=== PATIENT | female | born 1995 | race Caucasian/White ===

== ENCOUNTER → 2016-03-26 10:32 | Outpatient (CLI) | payer MEDICAID ==
[~2016-03-26 10:32] MED LIST: HYDROCODON-ACE1 EAC7 PO; IBUPROFEN600 MG PO; PRENATAL COMPLE1 TAB PO
[2016-03-26 12:18] LABS: APPEARANCE TURBID (CLEAR); BACTERIA MANY /hpf (NONE SEEN); BILIRUBIN NEGATIVE (NEGATIVE); COLOR YELLOW (YELLOW); GLUCOSE NEGATIVE (NEGATIVE); KETONE SMALL mg/dL (NEGATIVE); LEUKOCYTE ESTERASE 2+ (NEGATIVE); MUCUS <1+ /lpf (NONE SEEN); NITRITE POSITIVE (NEGATIVE); PROTEIN TRACE mg/dL (NEGATIVE); SPECIFIC GRAVITY 1.015 (1.005-1.020); UROBILINOGEN NORMAL (NORMAL)
[2016-05-19 04:56] VITALS: BMI 32.2
== END | disposition home or self-care (01) ==
LOC: D.LDO 10:32
PROVIDERS: Specialist
DX: Z34.83 Encounter for supervision of other normal pregnancy, third trimester (principal); M54.5 Low back pain; Z3A.31 31 weeks gestation of pregnancy

== ENCOUNTER 2016-04-19 14:12 | Outpatient (CLI) | payer MEDICAID ==
[~2016-04-19 14:12] MED LIST changes: -HYDROCODON-ACE1 EAC7 PO; -IBUPROFEN600 MG PO
[2016-04-19 14:55] LABS: APPEARANCE CLOUDY (CLEAR); BILIRUBIN NEGATIVE (NEGATIVE); COLOR DK YELLOW (YELLOW); GLUCOSE NEGATIVE (NEGATIVE); KETONE LARGE mg/dL (NEGATIVE); LEUKOCYTE ESTERASE TRACE (NEGATIVE); NITRITE NEGATIVE (NEGATIVE); PROTEIN 1+ mg/dL (NEGATIVE); SPECIFIC GRAVITY 1.015 (1.005-1.020); UROBILINOGEN NORMAL (NORMAL)
[2016-04-19 14:57] LABS: WHITE CELLS - URINE 0-5 /hpf (0-5)
[2016-04-19 14:58] LABS: BACTERIA MODERATE /hpf (NONE SEEN); EPITHELIAL CELLS 0-5 /hpf (0-5); MUCUS <1+ /lpf (NONE SEEN)
[2016-04-19 15:40] LABS: BASOPHILS 0.1 % (0.0-2.0); EOSINOPHILS 0.1 % (0-7); HEMATOCRIT 34.5 % (36.0-48.0); IMMATURE GRANULOCYTES 0.3 % (0-5); MCH 27.4 pg (26.0-34.0); MCHC 31.9 g/dL (31.0-37.0); MCV 85.8 fL (80.0-100.0); MONOCYTES 5.4 % (2-11); NEUTROPHILS 87.1 % (40-80); PLATELET COUNT 198 10x3/uL (130-400); RBC 4.02 10x6/uL (4.00-5.40); RDW 14.4 % (11.5-14.5); WBC 11.9 10x3/uL (4.8-10.8)
[2016-05-19 04:56] VITALS: BMI 32.2
== END 2016-04-20 08:30 | disposition home or self-care (01) ==
LOC: D.LD 14:12 → D.LDO 14:12 → D.LD 23:40 → D.LDO 04-20 08:30
PROVIDERS: Obstetrics & Gynecology
DX: Z34.83 Encounter for supervision of other normal pregnancy, third trimester (principal); Z3A.34 34 weeks gestation of pregnancy

== ENCOUNTER 2016-04-21 00:15 | Outpatient (CLI) | payer MEDICAID ==
[2016-04-21 01:07] LABS: BASOPHILS 0 % (0.0-2.0); EOSINOPHILS 1.5 % (0-7); HEMATOCRIT 26.6 % (36.0-48.0); HEMOGLOBIN 8.7 g/dL (12-16); IMMATURE GRANULOCYTES 0.3 % (0-5); MCH 27.1 pg (26.0-34.0); MCHC 32.7 g/dL (31.0-37.0); MCV 82.9 fL (80.0-100.0); MONOCYTES 12.1 % (2-11); NEUTROPHILS 64.1 % (40-80); PLATELET COUNT 154 10x3/uL (130-400); RBC 3.21 10x6/uL (4.00-5.40); RDW 14.4 % (11.5-14.5); WBC 6.6 10x3/uL (4.8-10.8)
[2016-05-19 04:56] VITALS: BMI 32.2
== END 2016-04-21 01:39 | disposition home or self-care (01) ==
LOC: D.LDO 00:15
PROVIDERS: Obstetrics & Gynecology
DX: Z34.83 Encounter for supervision of other normal pregnancy, third trimester (principal); Z3A.34 34 weeks gestation of pregnancy; R10.9 Unspecified abdominal pain

== ENCOUNTER → 2016-05-02 03:13 | Outpatient (CLI) | payer MEDICAID ==
[~2016-05-02 03:13] MED LIST changes: +HYDROCODON-ACE1 EAC7 PO; +IBUPROFEN600 MG PO
[2016-05-19 04:56] VITALS: BMI 32.2
== END | disposition home or self-care (01) ==
LOC: D.LDO 03:13
DX: Z34.83 Encounter for supervision of other normal pregnancy, third trimester (principal); Z3A.36 36 weeks gestation of pregnancy

== ENCOUNTER → 2016-05-05 00:20 | Outpatient (CLI) | payer MEDICAID ==
[2016-05-05 00:53] LABS: APPEARANCE HAZY (CLEAR); BILIRUBIN NEGATIVE (NEGATIVE); COLOR YELLOW (YELLOW); GLUCOSE NEGATIVE (NEGATIVE); KETONE NEGATIVE (NEGATIVE); LEUKOCYTE ESTERASE 1+ (NEGATIVE); NITRITE NEGATIVE (NEGATIVE); PROTEIN NEGATIVE (NEGATIVE); UROBILINOGEN NORMAL (NORMAL)
[2016-05-05 00:57] LABS: BACTERIA MANY /hpf (NONE SEEN); RED CELLS - URINE 0-5 /hpf (0-5)
[2016-05-19 04:56] VITALS: BMI 32.2
== END | disposition home or self-care (01) ==
LOC: D.LDO 00:20
PROVIDERS: Obstetrics & Gynecology
DX: O26.893 Other specified pregnancy related conditions, third trimester (principal); Z3A.37 37 weeks gestation of pregnancy; R10.2 Pelvic and perineal pain

== ENCOUNTER → 2016-05-12 15:53 | Outpatient (CLI) | payer MEDICAID ==
[2016-05-19 04:56] VITALS: BMI 32.2
== END | disposition home or self-care (01) ==
LOC: D.US 15:00
DX: O09.893 Supervision of other high risk pregnancies, third trimester (principal); Z3A.38 38 weeks gestation of pregnancy; O36.5930 Maternal care for other known or suspected poor fetal growth, third trimester, not applicable or unspecified

== ENCOUNTER 2016-05-19 04:30 | Inpatient (IN) | payer MEDICAID ==
[~2016-05-19] VITALS: Ht 152.4 cm; Wt 74.8 kg
[~2016-05-19 04:30] MED LIST changes: -HYDROCODON-ACE1 EAC7 PO; -IBUPROFEN600 MG PO
[2016-05-19 04:56] VITALS: BP 116/68; Ht 152.4 cm; Wt 74.8 kg
[2016-05-19 05:56] LABS: HEMATOCRIT 31.3 % (36.0-48.0); HEMOGLOBIN 9.7 g/dL (12-16); MCH 25.2 pg (26.0-34.0); MCV 81.3 fL (80.0-100.0); RBC 3.85 10x6/uL (4.00-5.40); RDW 15.7 % (11.5-14.5); WBC 8.8 10x3/uL (4.8-10.8)
[2016-05-19 07:16] LABS: APPEARANCE HAZY (CLEAR); BILIRUBIN NEGATIVE (NEGATIVE); COLOR YELLOW (YELLOW); GLUCOSE NEGATIVE (NEGATIVE); KETONE NEGATIVE (NEGATIVE); LEUKOCYTE ESTERASE TRACE (NEGATIVE); NITRITE NEGATIVE (NEGATIVE); PROTEIN NEGATIVE (NEGATIVE); SPECIFIC GRAVITY 1.015 (1.005-1.020); UROBILINOGEN NORMAL (NORMAL)
[2016-05-19 07:23] LABS: AMORPHOUS SEDIMENT <1+ /lpf (NONE SEEN); BACTERIA MODERATE /hpf (NONE SEEN); GRANULAR CAST RARE /lpf (NONE SEEN); MUCUS <1+ /lpf (NONE SEEN); RED CELLS - URINE NONE SEEN /hpf (0-5); WHITE CELLS - URINE 0-5 /hpf (0-5)
--- NOTE | 2016-05-19 17:50 | NUR ---
PT FEEDING BABY THEN EATING. TO BE MOVED TO ROOM 1215 WHEN FINISHED.
[2016-05-19 19:15] VITALS: BP 110/68
--- NOTE | 2016-05-19 19:15 | NUR ---
PT SITTING UP IN BED AAOX3 HOLDING AT THIS TIME. FOB AT BEDSIDE. VSS. SALINE LOCK NOTED TO RIGHT FOREARM. DRESSING CDI. HEART RRR. LUNG SOUNDS CLEAR BILATERALLY. BOWEL SOUNDS ACTIVE X4 QUADRENTS. ABDOMEN SOFT. FUNDUS FIRM AND MIDLINE. U/U. LIGHT LOCHIA RUBRA NOTED TO CANDACE PAD AT THIS TIME. PT RATES PAIN 6/10 AT THIS TIME. PT REQUESTS LEMON [place] AT THIS TIME. DENIES OTHER NEEDS. BED LOW. PHONE AND CALL LIGHT IN REACH. SRX2.
--- NOTE | 2016-05-19 20:18 | NUR ---
ADMINISTERED NORCO PO PER ORDERS AT THIS TIME FOR PAIN PT RATES 10/25. DENIES OTHER NEEDS. BED LOW. PHONE AND CALL LIGHT IN REACH. SRX2.
--- NOTE | 2016-05-19 21:03 | NUR ---
ADMINISTERED MILK OF MAG LIQUID SUSPENSION PER ORDERS AT THIS TIME. PT RATES PAIN /. REQUESTS LEMON [place]. DENIES OTHER NEEDS. BED LOW. PHONE AND CALL LIGHT IN REACH. SRX2.
--- NOTE | 2016-05-19 22:26 | NUR ---
PT UP USING SHOWER AT THIS TIME. STATES SHE IS GOING TO PUT HER OWN CLOTHES ON AFTER SHOWERING AND WALK AROUND FOR A LITTLE BIT. DENIES NEEDS.
--- NOTE | 2016-05-19 22:39 | NUR ---
PT UP AMBULATING IN [place] AT THIS TIME. NO NEEDS NOTED.
--- NOTE | 2016-05-20 00:08 | NUR ---
PT UP AMBULATING IN HALLWAY AT THIS TIME WITH SIGNIFICANT OTHER TO TAKE BABY BACK TO NURSERY. DENIES NEEDS.
--- NOTE | 2016-05-20 01:57 | NUR ---
PT RESTING QUIETLY AT THIS TIME. AROUSED EASILY. REQUESTS MEDICATION FOR PAIN 10/25. ADMINISTERED NORCO PO PER ORDERS AT THIS TIME. PT DENIES OTHER NEEDS. BED LOW. PHONE AND CALL LIGHT IN REACH. SRX2.
--- NOTE | 2016-05-20 03:55 | NUR ---
PT RESTING QUIETLY AT THIS TIME WITH EYES CLOSED. RESPIRATIONS EVEN, NON-LABORED. NO ACUTE DISTRESS NOTED AT THIS TIME. BED LOW. PHONE AND CALL LIGHT IN REACH. SRX2.
--- NOTE | 2016-05-20 05:18 | NUR ---
ADMINISTERED MOTRIN PO PER ORDERS AT THIS TIME FOR PAIN PT RATES 08/24. DENIES OTHER NEEDS. BED LOW. PHONE AND CALL LIGHT IN REACH. SRX2.
--- NOTE | 2016-05-20 05:57 | NUR ---
PT SITTING UP IN BED HOLDING AT THIS TIME. PT REQUESTS MEDICATION FOR PAIN. ADMINISTERED NORCO PO PER ORDERS AT THIS TIME FOR PAIN PT RATES 10/25. PT DENIES OTHER NEEDS. BED LOW. PHONE AND CALL LIGHT IN REACH. SRX2.
[2016-05-20 06:14] LABS: RAPID PLASMA REAGIN Non Reactive (Non Reactive)
[2016-05-20 06:36] LABS: BASOPHILS 0.2 % (0.0-2.0); EOSINOPHILS 1.4 % (0-7); HEMATOCRIT 25.4 % (36.0-48.0); IMMATURE GRANULOCYTES 0.1 % (0-5); LYMPHOCYTES 28.4 % (15-50); MCH 25.6 pg (26.0-34.0); MCHC 31.5 g/dL (31.0-37.0); MCV 81.2 fL (80.0-100.0); MEAN PLATELET VOLUME 11.3 fL (7.4-10.4); NEUTROPHILS 59.9 % (40-80); PLATELET COUNT 192 10x3/uL (130-400); RBC 3.13 10x6/uL (4.00-5.40); RDW 15.5 % (11.5-14.5); WBC 8.5 10x3/uL (4.8-10.8)
--- NOTE | 2016-05-20 06:47 | NUR ---
REASSESSED PTS PAIN AT THIS TIME. RATES PAIN /10. DENIES OTHER NEEDS. BED LOW. PHONE AND CALL LIGHT IN REACH. SRX2.
[2016-05-20 07:30] VITALS: BP 109/69
--- NOTE | 2016-05-20 07:30 | NUR ---
PT IS RECEIVED THIS AM SITTING UP IN BED, EATING BREAKFAST. SHE STATES HER PAIN IS A 5/10. GEN- AWAKE AND ALERT. LUNGS- CLEAR. HEART- RRR. ABD- SOFT FUNDUS FIRM. LOCIA- MOD. EXT- NO EDEMA. AT BEDSIDE. BED IS LOW, SIDE RAILS UP X 2 AND CALL LIGHT IN REACH.
--- NOTE | 2016-05-20 08:30 | NUR ---
PT REQUEST MORE PAIN MED. STATES HER PAIN IS NOW A 9. GAVE HER ANOTHER NORCO 5/325 MG.
[2016-05-20] MEDS ORDERED: HYDROCODON-ACE1 EAC7 PO (08:39)
[2016-05-20] MEDS ORDERED: IBUPROFEN600 MG PO (08:39)
--- NOTE | 2016-05-20 09:30 | NUR ---
WALKING IN [place] ASKING IF SHE CAN GO OUTSIDE HOSPITAL FOR WALK. INFORMED THAT FOR SAFETY, PATIENT NEEDS TO STAY INSIDE HOSPITAL WHERE HOSPITAL STAFF MAY OBSERVE FOR AND MEET NEEDS. REMAINS STABLE WITH NO SIGNS OF RESP DISTRESS OR OTHER DISTRESS NOTED OR REPORTED.
--- NOTE | 2016-05-20 10:50 | NUR ---
DR ALEJANDRO AT BEDSIDE. PATIENT REMAINS STABLE WITH NO SIGNS OF RESP DISTRESS OR OTHER DISTRESS NOTED. REPORTS PAIN MED EFFECTIVE BUT IS WEARING OFF AND PAIN NOW AT LEVEL 4 TO 5. FOB ATTENTIVE AT BEDSIDE.
--- NOTE | 2016-05-20 11:27 | NUR ---
PT IS SITTING UP IN BED, HOLDING BABY. SHE OFFERS NO COMPLAINTS. AT BEDSIDE. BED IS LOW, SIDE RAILS UP X 2 AND CALL LIGHT IN REACH.
--- NOTE | 2016-05-20 13:12 | NUR ---
PT STATES HER BABY ATE BETTER THIS TIME. SHE FED HIM 30CC AND HE IS STILL EATING. FOB AT BEDSIDE.
--- NOTE | 2016-05-20 13:40 | NUR ---
PT REQUESTED PAIN MED BEFORE DRIVE HOME. NORCO GIVEN.
--- NOTE | 2016-05-20 14:17 | NUR ---
DISCHARGE INSTRUCTIONS GIVEN TO PT. THESE WERE DISCUSSED WITH PT AND FOB. HANDOUTS GIVEN WELL FU APPT AND PRESCRIPTIONS. ENCOURAGED PT TO CALL US WITH ANY QUESTIONS OR PROBLEMS. PT TAKEN TO VEHICLE BY WHEELCHAIR.
== END 2016-05-20 14:23 | disposition home or self-care (01) | DRG 775 ==
LOC: D.LD 04:30 → D.WS 17:29
PROVIDERS: ADMIT Specialist
PROC: 10E0XZZ Delivery of Products of Conception, External Approach (ICD-10-PCS; principal; 2016-05-19)
PROC: 0HQ9XZZ Repair Perineum Skin, External Approach (ICD-10-PCS; 2016-05-19)
DX: O99.214 Obesity complicating childbirth (principal); Z3A.39 39 weeks gestation of pregnancy; Z37.0 Single live birth; Z68.32 Body mass index [BMI] 32.0-32.9, adult; O26.893 Other specified pregnancy related conditions, third trimester; Z67.91 Unspecified blood type, Rh negative; O69.81X0 Labor and delivery complicated by cord around neck, without compression, not applicable or unspecified; O66.9 Obstructed labor, unspecified; O70.0 First degree perineal laceration during delivery

== ENCOUNTER 2016-08-01 19:36 | Emergency (ER) | payer MEDICAID ==
[2016-05-19 04:56] VITALS: BMI 32.2
[~2016-08-01 19:36] MED LIST changes: +HYDROCODON-ACE1 EAC7 PO; +IBUPROFEN600 MG PO
== END 2016-08-01 22:16 | disposition home or self-care (01) ==
LOC: D.ER 19:36
DX: S81.011A Laceration without foreign body, right knee, initial encounter (principal); W26.9XXA Contact with unspecified sharp object(s), initial encounter

== ENCOUNTER 2016-11-01 21:07 | Emergency (ER) | payer MEDICAID | END 2016-11-01 23:43 | disposition home or self-care (01) | LOC: D.ER 21:07 | DX: J06.9 Acute upper respiratory infection, unspecified (principal); F17.200 Nicotine dependence, unspecified, uncomplicated ==

== ENCOUNTER 2016-12-25 16:30 | Emergency (ER) | payer MEDICAID ==
[2016-05-19 04:56] VITALS: BMI 32.2
[2016-12-25 17:04] LABS: BASOPHILS 0.3 % (0-2); EOSINOPHILS 1.7 % (0-7); HEMATOCRIT 40.6 % (36.0-48.0); IMMATURE GRANULOCYTES 0.2 % (0-5); LYMPHOCYTES 35.3 % (15-50); MCH 25.6 pg (26.0-34.0); MCV 80.1 fL (80.0-100.0); MEAN PLATELET VOLUME 10.5 fL (7.4-10.4); MONOCYTES 7.3 % (2-11); NEUTROPHILS 55.2 % (40-80); PLATELET COUNT 194 10x3/uL (130-400); RBC 5.07 10x6/uL (4.00-5.40)
[2016-12-25 17:13] LABS: AMYLASE - SERUM 68 U/L (25-115); LIPASE 186 U/L (73-393)
[2016-12-25 17:18] LABS: APPEARANCE CLEAR (CLEAR); BILIRUBIN NEGATIVE (NEGATIVE); COLOR YELLOW (YELLOW); GLUCOSE NEGATIVE (NEGATIVE); HCG URINE NEGATIVE (NEGATIVE); KETONE NEGATIVE (NEGATIVE); NITRITE NEGATIVE (NEGATIVE); PROTEIN NEGATIVE (NEGATIVE); SPECIFIC GRAVITY 1.015 (1.005-1.020); UROBILINOGEN NORMAL (NORMAL)
[2016-12-25 17:20] LABS: BACTERIA FEW /hpf (NONE SEEN); EPITHELIAL CELLS 0-5 /hpf (0-5); RED CELLS - URINE 0-5 /hpf (0-5); WHITE CELLS - URINE 0-5 /hpf (0-5)
== END 2016-12-25 18:52 | disposition home or self-care (01) ==
LOC: D.ER 16:30
PROVIDERS: Emergency Medicine; Nurse Practitioner Family
DX: K29.00 Acute gastritis without bleeding (principal); R11.10 Vomiting, unspecified

== ENCOUNTER → 2017-06-10 19:32 | Emergency (ER) | payer MEDICAID ==
[2016-05-19 04:56] VITALS: BMI 32.2
== END | disposition left against medical advice (07) ==
LOC: D.ER 19:32
DX: Z02.9 Encounter for administrative examinations, unspecified (principal)

== ENCOUNTER 2017-10-30 18:20 | Emergency (ER) | payer MEDICAID ==
[~2017-10-30] VITALS: Ht 152.4 cm; Wt 77.3 kg
[2017-10-30 18:26] VITALS: Ht 152.4 cm; Wt 77.3 kg
[2017-10-30 18:43] LABS: BASOPHILS 0.2 % (0-2); EOSINOPHILS 1.9 % (0-7); HEMOGLOBIN 14.6 g/dL (12-16); IMMATURE GRANULOCYTES 0.2 % (0-5); MCH 28.9 pg (26.0-34.0); MEAN PLATELET VOLUME 10.4 fL (7.4-10.4); NEUTROPHILS 58.7 % (40-80); PLATELET COUNT 217 10x3/uL (130-400); RBC 5.06 10x6/uL (4.00-5.40); RDW 14.3 % (11.5-14.5); WBC 9.4 10x3/uL (4.8-10.8)
[2017-10-30 18:50] LABS: APPEARANCE CLEAR (CLEAR); BILIRUBIN NEGATIVE (NEGATIVE); COLOR STRAW (YELLOW); GLUCOSE NEGATIVE (NEGATIVE); KETONE NEGATIVE (NEGATIVE); NITRITE NEGATIVE (NEGATIVE); PROTEIN NEGATIVE (NEGATIVE); UROBILINOGEN NORMAL (NORMAL)
[2017-10-30 18:52] LABS: EPITHELIAL CELLS 0-5 /hpf (0-5); RED CELLS - URINE 0-5 /hpf (0-5)
[2017-10-30 18:54] LABS: BACTERIA FEW /hpf (NONE SEEN)
[2017-10-30 18:57] LABS: ALBUMIN 3.5 g/dL (3.4-5.0); ALKALINE PHOSPHATASE 57 U/L (46-116); ALT (SGPT) 26 U/L (10-68); AMYLASE - SERUM 63 U/L (25-115); BILIRUBIN - TOTAL 0.14 mg/dL (0.2-1.3); CALC OSMOLALITY 280 mosm/kg (275-300); CALCIUM 8.6 mg/dL (8.5-10.1); CARBON DIOXIDE 27.4 mmol/L (21.0-32.0); CHLORIDE - SERUM 105 mmol/L (98-107); CREATININE - SERUM 0.7 mg/dL (0.6-1.3); GLUCOSE 107 mg/dL (74-106); LIPASE 169 U/L (73-393); POTASSIUM - SERUM 3.8 mmol/L (3.5-5.1); PROTEIN - SERUM 7.3 g/dL (6.4-8.2); SODIUM 141 mmol/L (136-145); UREA NITROGEN 12 mg/dL (7-18); eGFR NON AFRICAN AMERICAN > 90 mL/min (90-120)
[2017-10-30 19:20] LABS: HCG URINE NEGATIVE (NEGATIVE)
[2017-10-30 20:44] VITALS: BP 114/70
[2017-10-30] MEDS ORDERED: MACROBID100 MG PO (20:56)
[2017-10-30] MEDS ORDERED: COMPAZINE5 MG PO (20:56)
== END 2017-10-30 21:19 | disposition home or self-care (01) ==
LOC: D.ER 18:20
PROVIDERS: Emergency Medicine; Family Medicine
DX: N39.0 Urinary tract infection, site not specified (principal); R11.0 Nausea; R19.7 Diarrhea, unspecified; F17.200 Nicotine dependence, unspecified, uncomplicated

== ENCOUNTER 2017-12-19 00:20 | Emergency (ER) | payer MEDICAID ==
[~2017-12-19] VITALS: Ht 152.4 cm; Wt 68.2 kg
[~2017-12-19 00:20] MED LIST changes: +COMPAZINE5 MG PO; +MACROBID100 MG PO
[2017-12-19 00:30] VITALS: Ht 152.4 cm; Wt 68.2 kg
[2017-12-19] MEDS ORDERED: TORADOL10 MG PO (01:11)
[2017-12-19 01:32] LABS: HCG URINE NEGATIVE (NEGATIVE)
[2017-12-19 01:35] LABS: APPEARANCE CLOUDY (CLEAR); COLOR YELLOW (YELLOW)
[2017-12-19 01:36] LABS: BACTERIA MODERATE /hpf (NONE SEEN); BILIRUBIN NEGATIVE (NEGATIVE); GLUCOSE NEGATIVE (NEGATIVE); KETONE NEGATIVE (NEGATIVE); MUCUS >1+ /lpf (NONE SEEN); NITRITE NEGATIVE (NEGATIVE); PROTEIN TRACE mg/dL (NEGATIVE); UROBILINOGEN NORMAL (NORMAL); WHITE CELLS - URINE 25-50 /hpf (0-5)
[2017-12-19 02:09] VITALS: BP 95/60
== END 2017-12-19 02:09 | disposition home or self-care (01) ==
LOC: D.ER 00:20
PROVIDERS: Emergency Medicine
DX: S30.0XXA Contusion of lower back and pelvis, initial encounter (principal); W17.89XA Other fall from one level to another, initial encounter; Y93.89 Activity, other specified; Y92.019 Unspecified place in single-family (private) house as the place of occurrence of the external cause; F17.200 Nicotine dependence, unspecified, uncomplicated

== ENCOUNTER 2018-04-29 01:10 | Observation (INO) | payer MEDICAID ==
[~2018-04-29] VITALS: Ht 152.4 cm; Wt 76.7 kg
[~2018-04-29 01:10] MED LIST changes: +TORADOL10 MG PO
[2018-04-29 01:49] LABS: BASOPHILS 0.2 % (0-2); EOSINOPHILS 1.7 % (0-7); HEMATOCRIT 40.5 % (36.0-48.0); HEMOGLOBIN 13.8 g/dL (12-16); IMMATURE GRANULOCYTES 0.2 % (0-5); MCH 28.8 pg (26.0-34.0); MCHC 34.1 g/dL (31.0-37.0); MCV 84.6 fL (80.0-100.0); MEAN PLATELET VOLUME 10.6 fL (7.4-10.4); NEUTROPHILS 53.9 % (40-80); RBC 4.79 10x6/uL (4.00-5.40); RDW 14.3 % (11.5-14.5); WBC 8.9 10x3/uL (4.8-10.8)
[2018-04-29 01:51] LABS: APPEARANCE CLEAR (CLEAR); BILIRUBIN NEGATIVE (NEGATIVE); COLOR DK YELLOW (YELLOW); GLUCOSE NEGATIVE (NEGATIVE); KETONE NEGATIVE (NEGATIVE); NITRITE NEGATIVE (NEGATIVE); PROTEIN NEGATIVE (NEGATIVE); SPECIFIC GRAVITY 1.015 (1.005-1.020); UROBILINOGEN NORMAL (NORMAL)
[2018-04-29 01:52] LABS: PLATELET COUNT 262 10x3/uL (130-400)
[2018-04-29 02:26] LABS: ALBUMIN 3.3 g/dL (3.4-5.0); ALKALINE PHOSPHATASE 47 U/L (46-116); ALT (SGPT) 17 U/L (10-68); CALC OSMOLALITY 276 mosm/kg (275-300); CALCIUM 8.5 mg/dL (8.5-10.1); CARBON DIOXIDE 22.8 mmol/L (21.0-32.0); CHLORIDE - SERUM 106 mmol/L (98-107); CREATININE - SERUM 0.6 mg/dL (0.6-1.3); GLUCOSE 97 mg/dL (74-106); POTASSIUM - SERUM 3.4 mmol/L (3.5-5.1); PROTEIN - SERUM 6.9 g/dL (6.4-8.2); SODIUM 140 mmol/L (136-145); UREA NITROGEN 8 mg/dL (7-18); eGFR NON AFRICAN AMERICAN > 90 mL/min (90-120)
[2018-04-29 02:47] LABS: HCG - QUANTITATIVE (MATERNAL) 10151 mIU/mL
[2018-04-29 03:45] VITALS: BP 98/53; BMI 33.0
[2018-04-29 10:02] VITALS: Ht 152.4 cm; Wt 76.7 kg
[2018-04-29 11:38] VITALS: BP 98/55
== END 2018-04-29 20:14 | disposition home or self-care (01) ==
LOC: D.ER 01:10 → OBSVTIME 03:12 → D.LD 03:12 → D.ER 03:22 → D.LD 20:14
PROVIDERS: Family Medicine; ADMIT Obstetrics & Gynecology; ATTEND Obstetrics & Gynecology
DX: O02.1 Missed abortion (principal); O99.281 Endocrine, nutritional and metabolic diseases complicating pregnancy, first trimester; E28.2 Polycystic ovarian syndrome; Z3A.01 Less than 8 weeks gestation of pregnancy; O99.331 Smoking (tobacco) complicating pregnancy, first trimester

== ENCOUNTER 2018-05-01 18:21 | Emergency (ER) | payer MEDICAID ==
[~2018-05-01] VITALS: Ht 152.4 cm; Wt 77.3 kg
[2018-05-01 18:31] VITALS: Ht 152.4 cm; Wt 77.3 kg
[2018-05-01 18:56] LABS: APPEARANCE SL CLDY (CLEAR); BILIRUBIN NEGATIVE (NEGATIVE); COLOR YELLOW (YELLOW); GLUCOSE NEGATIVE (NEGATIVE); KETONE NEGATIVE (NEGATIVE); NITRITE NEGATIVE (NEGATIVE); PROTEIN TRACE mg/dL (NEGATIVE); UROBILINOGEN NORMAL (NORMAL)
[2018-05-01 19:02] LABS: BACTERIA MODERATE /hpf (NONE SEEN)
[2018-05-01 19:15] LABS: ALBUMIN 3.1 g/dL (3.4-5.0); ALKALINE PHOSPHATASE 46 U/L (46-116); ALT (SGPT) 12 U/L (10-68); BILIRUBIN - TOTAL 0.29 mg/dL (0.2-1.3); CALC OSMOLALITY 279 mosm/kg (275-300); CALCIUM 8.3 mg/dL (8.5-10.1); CARBON DIOXIDE 23.2 mmol/L (21.0-32.0); CHLORIDE - SERUM 107 mmol/L (98-107); CREATININE - SERUM 0.6 mg/dL (0.6-1.3); GLUCOSE 90 mg/dL (74-106); POTASSIUM - SERUM 3.1 mmol/L (3.5-5.1); PROTEIN - SERUM 6.6 g/dL (6.4-8.2); SODIUM 141 mmol/L (136-145); UREA NITROGEN 10 mg/dL (7-18); eGFR NON AFRICAN AMERICAN > 90 mL/min (90-120)
[2018-05-01 19:40] LABS: BASOPHILS 0.3 % (0-2); EOSINOPHILS 1.7 % (0-7); HEMATOCRIT 38.6 % (36.0-48.0); HEMOGLOBIN 12.7 g/dL (12-16); IMMATURE GRANULOCYTES 0.3 % (0-5); LYMPHOCYTES 41.2 % (15-50); MCH 28.1 pg (26.0-34.0); MCHC 32.9 g/dL (31.0-37.0); MCV 85.4 fL (80.0-100.0); MONOCYTES 7.9 % (2-11); NEUTROPHILS 48.6 % (40-80); PLATELET COUNT 232 10x3/uL (130-400); RBC 4.52 10x6/uL (4.00-5.40); RDW 14.7 % (11.5-14.5); WBC 7.1 10x3/uL (4.8-10.8)
[2018-05-01] MEDS ORDERED: ZOFRAN4 MG PO (20:51)
[2018-05-01 21:50] VITALS: BP 106/54
== END 2018-05-01 21:50 | disposition home or self-care (01) ==
LOC: D.ER 18:21
PROVIDERS: Emergency Medicine
DX: N39.0 Urinary tract infection, site not specified (principal); R11.2 Nausea with vomiting, unspecified; Z98.890 Other specified postprocedural states

== ENCOUNTER 2018-07-17 19:07 | Emergency (ER) | payer MEDICAID ==
[~2018-07-17 19:07] MED LIST changes: +ZOFRAN4 MG PO
[2018-07-17 19:11] VITALS: BMI 33.2
[2018-07-17 19:35] LABS: BASOPHILS 0.2 % (0-2); EOSINOPHILS 1.4 % (0-7); HEMATOCRIT 41.9 % (36.0-48.0); HEMOGLOBIN 14.1 g/dL (12-16); IMMATURE GRANULOCYTES 0.2 % (0-5); LYMPHOCYTES 33.2 % (15-50); MCH 28.5 pg (26.0-34.0); MCHC 33.7 g/dL (31.0-37.0); MCV 84.8 fL (80.0-100.0); MEAN PLATELET VOLUME 10.7 fL (7.4-10.4); MONOCYTES 7.1 % (2-11); NEUTROPHILS 57.9 % (40-80); PLATELET COUNT 234 10x3/uL (130-400); RBC 4.94 10x6/uL (4.00-5.40); RDW 13.9 % (11.5-14.5); WBC 9.7 10x3/uL (4.8-10.8)
[2018-07-17 19:52] LABS: HCG URINE NEGATIVE (NEGATIVE)
[2018-07-17 19:53] LABS: APTT 28.9 SECONDS (22.8-39.4); INR 1.06 (0.85-1.17); PROTIME 13.3 SECONDS (11.6-15.0)
[2018-07-17 20:02] LABS: ALBUMIN 3.7 g/dL (3.4-5.0); ALKALINE PHOSPHATASE 68 U/L (46-116); ALT (SGPT) 32 U/L (10-68); BILIRUBIN - TOTAL 0.26 mg/dL (0.2-1.3); CALC OSMOLALITY 279 mosm/kg (275-300); CALCIUM 9.2 mg/dL (8.5-10.1); CARBON DIOXIDE 25.5 mmol/L (21.0-32.0); CHLORIDE - SERUM 104 mmol/L (98-107); CREATININE - SERUM 0.7 mg/dL (0.6-1.3); GLUCOSE 101 mg/dL (74-106); POTASSIUM - SERUM 3.8 mmol/L (3.5-5.1); PROTEIN - SERUM 7.7 g/dL (6.4-8.2); SODIUM 140 mmol/L (136-145); UREA NITROGEN 15 mg/dL (7-18); eGFR NON AFRICAN AMERICAN > 90 mL/min (90-120)
[2018-07-17 20:16] LABS: CKMB 0.4 U/L (0.0-3.6); CREATINE KINASE 74 UL (21-215); THYROID STIMULATING HORMONE 1.17 uIU/mL (0.36-3.74)
[2018-07-17 20:17] LABS: TROPONIN-I < 0.017 ng/mL (0.000-0.060)
[2018-07-17] MEDS ORDERED: PREDNISONE50 MG PO (20:45)
[2018-07-17 21:04] VITALS: BP 117/70
== END 2018-07-17 21:04 | disposition home or self-care (01) ==
LOC: D.ER 19:07
PROVIDERS: Family Medicine
DX: G51.0 Bell's palsy (principal); R07.9 Chest pain, unspecified

== ENCOUNTER 2018-08-07 19:43 | Emergency (ER) | payer MEDICAID ==
[~2018-08-07] VITALS: Ht 152.4 cm; Wt 77.1 kg
[~2018-08-07 19:43] MED LIST changes: +PREDNISONE50 MG PO
[2018-08-07 19:45] VITALS: Ht 152.4 cm; Wt 77.1 kg
[2018-08-07] MEDS ORDERED: MEDROL DOSE PACK4 MG PO (20:16)
[2018-08-07] MEDS ORDERED: HYDROCORTISONE30 G8 TOPICAL (20:16)
[2018-08-07 20:40] VITALS: BP 128/74
== END 2018-08-07 20:40 | disposition home or self-care (01) ==
LOC: D.ER 19:43
DX: L25.9 Unspecified contact dermatitis, unspecified cause (principal); F17.210 Nicotine dependence, cigarettes, uncomplicated

== ENCOUNTER 2018-09-24 00:39 | Emergency (ER) | payer MEDICAID ==
[~2018-09-24] VITALS: Ht 152.4 cm; Wt 78.2 kg
[~2018-09-24 00:39] MED LIST changes: +HYDROCORTISONE30 G8 TOPICAL; +MEDROL DOSE PACK4 MG PO
[2018-09-24 00:51] VITALS: Ht 152.4 cm; Wt 78.2 kg
[2018-09-24 01:03] LABS: BASOPHILS 0.2 % (0-2); EOSINOPHILS 2.5 % (0-7); HEMATOCRIT 40.4 % (36.0-48.0); HEMOGLOBIN 14.1 g/dL (12-16); IMMATURE GRANULOCYTES 0.2 % (0-5); LYMPHOCYTES 22.1 % (15-50); MCH 28.6 pg (26.0-34.0); MCHC 34.9 g/dL (31.0-37.0); MCV 81.9 fL (80.0-100.0); MEAN PLATELET VOLUME 10.5 fL (7.4-10.4); MONOCYTES 7.5 % (2-11); NEUTROPHILS 67.5 % (40-80); PLATELET COUNT 214 10x3/uL (130-400); RBC 4.93 10x6/uL (4.00-5.40); RDW 14.8 % (11.5-14.5); WBC 13.7 10x3/uL (4.8-10.8)
[2018-09-24 01:15] LABS: HCG SERUM POSITIVE (NEGATIVE)
[2018-09-24 01:17] LABS: ALBUMIN 3.3 g/dL (3.4-5.0); ALKALINE PHOSPHATASE 62 U/L (46-116); ALT (SGPT) 11 U/L (10-68); BILIRUBIN - TOTAL 0.26 mg/dL (0.2-1.3); CALC OSMOLALITY 271 mosm/kg (275-300); CALCIUM 9.2 mg/dL (8.5-10.1); CARBON DIOXIDE 22.7 mmol/L (21.0-32.0); CHLORIDE - SERUM 103 mmol/L (98-107); CREATININE - SERUM 0.5 mg/dL (0.6-1.3); GLUCOSE 99 mg/dL (74-106); PROTEIN - SERUM 7.6 g/dL (6.4-8.2); SODIUM 137 mmol/L (136-145); UREA NITROGEN 6 mg/dL (7-18); eGFR NON AFRICAN AMERICAN > 90 mL/min (90-120)
[2018-09-24 01:40] LABS: HCG - QUANTITATIVE (MATERNAL) 56110 mIU/mL
[2018-09-24 02:19] LABS: APPEARANCE HAZY (CLEAR); BILIRUBIN NEGATIVE (NEGATIVE); COLOR YELLOW (YELLOW); GLUCOSE NEGATIVE (NEGATIVE); KETONE NEGATIVE (NEGATIVE); NITRITE NEGATIVE (NEGATIVE); PROTEIN NEGATIVE (NEGATIVE); SPECIFIC GRAVITY 1.005 (1.005-1.020); UROBILINOGEN NORMAL (NORMAL); WHITE CELLS - URINE RARE /hpf (0-5)
[2018-09-24 05:13] VITALS: BP 123/75
== END 2018-09-24 05:13 | disposition home or self-care (01) ==
LOC: D.ER 00:39
PROVIDERS: Family Medicine
DX: O20.0 Threatened abortion (principal); Z3A.10 10 weeks gestation of pregnancy; N93.9 Abnormal uterine and vaginal bleeding, unspecified

== ENCOUNTER 2018-09-25 16:27 | Emergency (ER) | payer MEDICAID ==
[~2018-09-25] VITALS: Ht 152.4 cm; Wt 78.2 kg
[2018-09-25 16:57] VITALS: Ht 152.4 cm; Wt 78.2 kg
[2018-09-25 17:14] LABS: BASOPHILS 0.1 % (0-2); EOSINOPHILS 2.5 % (0-7); HEMATOCRIT 40.6 % (36.0-48.0); HEMOGLOBIN 13.9 g/dL (12-16); IMMATURE GRANULOCYTES 0.1 % (0-5); MCH 28.4 pg (26.0-34.0); MCHC 34.2 g/dL (31.0-37.0); MEAN PLATELET VOLUME 10.7 fL (7.4-10.4); MONOCYTES 10.2 % (2-11); NEUTROPHILS 60.1 % (40-80); PLATELET COUNT 206 10x3/uL (130-400); RBC 4.89 10x6/uL (4.00-5.40); RDW 14.8 % (11.5-14.5)
[2018-09-25 17:17] LABS: WBC 8.3 10x3/uL (4.8-10.8)
[2018-09-25 17:22] LABS: APPEARANCE CLEAR (CLEAR); BILIRUBIN NEGATIVE (NEGATIVE); COLOR YELLOW (YELLOW); GLUCOSE NEGATIVE (NEGATIVE); KETONE NEGATIVE (NEGATIVE); NITRITE NEGATIVE (NEGATIVE); PROTEIN NEGATIVE (NEGATIVE); SPECIFIC GRAVITY 1.015 (1.005-1.020); UROBILINOGEN NORMAL (NORMAL)
[2018-09-25 17:24] LABS: EPITHELIAL CELLS 0-5 /hpf (0-5); RED CELLS - URINE OCC /hpf (0-5); WHITE CELLS - URINE 0-5 /hpf (0-5)
[2018-09-25 17:25] LABS: AMORPHOUS SEDIMENT >1+ /lpf (NONE SEEN); BACTERIA FEW /hpf (NONE SEEN)
[2018-09-25 17:39] LABS: ALBUMIN 3.2 g/dL (3.4-5.0); ALKALINE PHOSPHATASE 59 U/L (46-116); ALT (SGPT) 11 U/L (10-68); BILIRUBIN - TOTAL 0.26 mg/dL (0.2-1.3); CALC OSMOLALITY 266 mosm/kg (275-300); CALCIUM 9.1 mg/dL (8.5-10.1); CARBON DIOXIDE 23.1 mmol/L (21.0-32.0); CHLORIDE - SERUM 103 mmol/L (98-107); CREATININE - SERUM 0.5 mg/dL (0.6-1.3); GLUCOSE 85 mg/dL (74-106); POTASSIUM - SERUM 3.8 mmol/L (3.5-5.1); PROTEIN - SERUM 7.3 g/dL (6.4-8.2); SODIUM 135 mmol/L (136-145); UREA NITROGEN 7 mg/dL (7-18); eGFR NON AFRICAN AMERICAN > 90 mL/min (90-120)
[2018-09-25 18:02] LABS: HCG - QUANTITATIVE (MATERNAL) 58576 mIU/mL
[2018-09-25 20:12] VITALS: BP 120/69
== END 2018-09-25 20:13 | disposition home or self-care (01) ==
LOC: D.ER 16:27
PROVIDERS: Emergency Medicine
DX: O20.9 Hemorrhage in early pregnancy, unspecified (principal); Z3A.10 10 weeks gestation of pregnancy

== ENCOUNTER → 2018-12-25 13:17 | Outpatient (CLI) | payer MEDICAID ==
[2018-09-25 16:57] VITALS: BMI 33.6
[2018-12-25 13:47] LABS: APPEARANCE TURBID (CLEAR); COLOR YELLOW (YELLOW)
[2018-12-25 13:48] LABS: BILIRUBIN NEGATIVE (NEGATIVE); GLUCOSE NEGATIVE (NEGATIVE); KETONE NEGATIVE (NEGATIVE); NITRITE NEGATIVE (NEGATIVE); PROTEIN NEGATIVE (NEGATIVE); SPECIFIC GRAVITY 1.025 (1.005-1.020); UROBILINOGEN NORMAL (NORMAL)
[2018-12-25 13:49] LABS: BACTERIA MANY /hpf (NEGATIVE); EPITHELIAL CELLS 25-50 /hpf (0-5); MUCUS >1+ /lpf (NONE SEEN); RED CELLS - URINE 0-5 /hpf (0-5)
== END | disposition home or self-care (01) ==
LOC: D.LDO 13:17
PROVIDERS: ATTEND Obstetrics & Gynecology
DX: O26.892 Other specified pregnancy related conditions, second trimester (principal); R10.10 Upper abdominal pain, unspecified; Z3A.23 23 weeks gestation of pregnancy

== ENCOUNTER → 2019-01-02 09:03 | Outpatient (CLI) | payer MEDICAID ==
[2018-09-25 16:57] VITALS: BMI 33.6
[2019-01-02 10:33] LABS: APPEARANCE CLEAR (CLEAR); BACTERIA FEW /hpf (NEGATIVE); BILIRUBIN NEGATIVE (NEGATIVE); COLOR YELLOW (YELLOW); EPITHELIAL CELLS 0-5 /hpf (0-5); GLUCOSE NEGATIVE (NEGATIVE); KETONE SMALL mg/dL (NEGATIVE); MUCUS <1+ /lpf (NONE SEEN); NITRITE NEGATIVE (NEGATIVE); PROTEIN NEGATIVE (NEGATIVE); RED CELLS - URINE OCC /hpf (0-5); UROBILINOGEN NORMAL (NORMAL); WHITE CELLS - URINE RARE /hpf (NEGATIVE)
== END | disposition home or self-care (01) ==
LOC: D.LDO 09:03
PROVIDERS: ATTEND Obstetrics & Gynecology
DX: O47.9 False labor, unspecified (principal); Z3A.00 Weeks of gestation of pregnancy not specified

== ENCOUNTER 2019-01-25 15:46 | Outpatient (CLI) | payer MEDICAID ==
[2018-09-25 16:57] VITALS: BMI 33.6
[2019-01-25 16:24] LABS: APPEARANCE HAZY (CLEAR); BILIRUBIN NEGATIVE (NEGATIVE); COLOR YELLOW (YELLOW); GLUCOSE NEGATIVE (NEGATIVE); KETONE NEGATIVE (NEGATIVE); NITRITE NEGATIVE (NEGATIVE); PROTEIN TRACE mg/dL (NEGATIVE); UROBILINOGEN NORMAL (NORMAL)
[2019-01-25 16:26] LABS: RED CELLS - URINE 0-5 /hpf (0-5); WHITE CELLS - URINE 0-5 /hpf (NEGATIVE)
[2019-01-25 16:27] LABS: EPITHELIAL CELLS 0-5 /hpf (0-5); MUCUS <1+ /lpf (NONE SEEN)
[2019-01-25 16:28] LABS: BACTERIA MODERATE /hpf (NEGATIVE)
== END 2019-01-25 18:00 ==
LOC: D.LDO 15:46
PROVIDERS: ATTEND Obstetrics & Gynecology
DX: O36.8120 Decreased fetal movements, second trimester, not applicable or unspecified (principal); Z3A.27 27 weeks gestation of pregnancy; R10.30 Lower abdominal pain, unspecified

== ENCOUNTER → 2019-02-11 18:05 | Outpatient (CLI) | payer MEDICAID ==
[~2019-02-11] VITALS: Ht 152.4 cm; Wt 73.6 kg
[~2019-02-11 18:05] MED LIST changes: +TAMIFLU75 MG PO
[2019-02-11 18:13] VITALS: Ht 152.4 cm; Wt 73.6 kg
[2019-02-11 18:58] LABS: BASOPHILS 0.2 % (0-2); EOSINOPHILS 0.7 % (0-7); HEMATOCRIT 31.3 % (36.0-48.0); HEMOGLOBIN 10.3 g/dL (12-16); IMMATURE GRANULOCYTES 0.2 % (0-5); LYMPHOCYTES 9.1 % (15-50); MCH 28.1 pg (26.0-34.0); MCHC 32.9 g/dL (31.0-37.0); MCV 85.5 fL (80.0-100.0); MEAN PLATELET VOLUME 10.8 fL (7.4-10.4); MONOCYTES 11.2 % (2-11); NEUTROPHILS 78.6 % (40-80); PLATELET COUNT 193 10x3/uL (130-400); RBC 3.66 10x6/uL (4.00-5.40); RDW 14.6 % (11.5-14.5); WBC 9.1 10x3/uL (4.8-10.8)
[2019-02-11 19:04] LABS: APPEARANCE HAZY (CLEAR); BACTERIA MODERATE /hpf (NEGATIVE); BILIRUBIN NEGATIVE (NEGATIVE); COLOR YELLOW (YELLOW); EPITHELIAL CELLS 0-5 /hpf (0-5); GLUCOSE NEGATIVE (NEGATIVE); KETONE LARGE mg/dL (NEGATIVE); MUCUS <1+ /lpf (NONE SEEN); NITRITE NEGATIVE (NEGATIVE); PROTEIN TRACE mg/dL (NEGATIVE); UROBILINOGEN NORMAL (NORMAL); WHITE CELLS - URINE 0-5 /hpf (NEGATIVE)
[2019-02-11 19:05] LABS: CALC OSMOLALITY 267 mosm/kg (275-300); CALCIUM 8.2 mg/dL (8.5-10.1); CARBON DIOXIDE 20.2 mmol/L (21.0-32.0); CHLORIDE - SERUM 103 mmol/L (98-107); CREATININE - SERUM 0.4 mg/dL (0.6-1.3); GLUCOSE 86 mg/dL (74-106); POTASSIUM - SERUM 3.5 mmol/L (3.5-5.1); SODIUM 136 mmol/L (136-145); UREA NITROGEN 5 mg/dL (7-18); eGFR NON AFRICAN AMERICAN > 90 mL/min (90-120)
[2019-02-11 19:11] LABS: ALBUMIN 2.6 g/dL (3.4-5.0); ALKALINE PHOSPHATASE 109 U/L (46-116); ALT (SGPT) 12 U/L (10-68); BILIRUBIN - TOTAL 0.23 mg/dL (0.2-1.3); PROTEIN - SERUM 6.6 g/dL (6.4-8.2)
[2019-02-11 20:23] VITALS: BP 124/85
== END | disposition home or self-care (01) ==
LOC: D.LDO 18:05 → D.ER 18:05 → EDSTATUS 21:06
PROVIDERS: Emergency Medicine; ATTEND Obstetrics & Gynecology
DX: O26.899 Other specified pregnancy related conditions, unspecified trimester (principal); J11.1 Influenza due to unidentified influenza virus with other respiratory manifestations

== ENCOUNTER → 2019-02-11 21:13 | Outpatient (CLI) | payer MEDICAID ==
[2019-02-11 18:13] VITALS: BMI 31.7
== END | disposition home or self-care (01) ==
LOC: D.LDO 21:13
PROVIDERS: ATTEND Obstetrics & Gynecology
DX: O26.899 Other specified pregnancy related conditions, unspecified trimester (principal); J11.1 Influenza due to unidentified influenza virus with other respiratory manifestations

== ENCOUNTER 2019-02-18 12:58 | Inpatient (IN) | payer MEDICAID ==
[~2019-02-18] VITALS: Ht 152.4 cm; Wt 74.6 kg
[2019-02-18] VITALS (29 sets, daily range): BP systolic 85–121; BP diastolic 47–83; BMI 34.0
--- NOTE | 2019-02-18 13:45 | NUR ---
MULTIPLE LATE ENTRIES DUE TO PT EMERGENT CONDITION. ARRIVED VIA EMS WITH REPORT OF HYPOTENSION, POSSIBLE GI BLEED, ABD PAIN AND 32WKS PREG. OB DEPT NOTIFIED LACING STRING CUTTER INTITIAL TRIAGE CHARTED AT [address] WHEELER AT BS. HEMOCCULT NEGATIVE AND FHT OBTAINED AT 84.
--- NOTE | 2019-02-18 13:45 | NUR ---
NOTE CONTINUED....AFTER HEMOCCULT AND FHT OBTAINED OB NOTIFIED. 2ND IV ACCESS OBTAINED WITH 18G TO RAC, NS BOLUS STARTED. PT PLACED ON MONITOR AND TRANSPORTED TO OB VIA STRETCHER AT 1310.....
--- NOTE | 2019-02-18 15:55 | NUR ---
REC'D PT TO CVICU AT 1535- RR NURSE AND DR RASCON AT BS. DR WARNER HERE WELL. ALL MONITORING EQUIPMENT ATTACHED AND ALARMS SET. CBC AND BMP SENT TO LAB. DEMISE BABY BROUGHT TO BEDSIDE. FAMILY AT BS.
[2019-02-18 16:13] LABS: HEMATOCRIT 28.1 % (36.0-48.0); MCH 28.1 pg (26.0-34.0); MCV 87.8 fL (80.0-100.0); MEAN PLATELET VOLUME 10.2 fL (7.4-10.4); PLATELET COUNT 128 10x3/uL (130-400); RDW 15.5 % (11.5-14.5); WBC 24.5 10x3/uL (4.8-10.8)
[2019-02-18 16:21] LABS: CARBON DIOXIDE 18.2 mmol/L (21.0-32.0); CHLORIDE - SERUM 109 mmol/L (98-107); CREATININE - SERUM 0.6 mg/dL (0.6-1.3); POTASSIUM - SERUM 4.5 mmol/L (3.5-5.1); SODIUM 139 mmol/L (136-145); UREA NITROGEN 7 mg/dL (7-18); eGFR NON AFRICAN AMERICAN > 90 mL/min (90-120)
[2019-02-18 16:24] LABS: CALC OSMOLALITY 283 mosm/kg (275-300); CALCIUM 6.5 mg/dL (8.5-10.1); GLUCOSE 234 mg/dL (74-106)
[2019-02-18 16:45] LABS: EOSINOPHILS 1 % (0-7); LYMPHOCYTES 9 % (15-50); MONOCYTES 1 % (2-11); NEUTROPHILS 88 % (40-80)
[2019-02-18 16:46] LABS: BURR CELLS OCC; PLATELET ESTIMATE NORMAL
[2019-02-18 16:47] LABS: SCHISTOCYTES OCC
[2019-02-18 17:30] LABS: APTT 33.2 SECONDS (22.8-39.4); INR 1.5 (0.85-1.17); PROTIME 17.5 SECONDS (11.6-15.0)
[2019-02-18 18:20] LABS: BASOPHILS 0.1 % (0-2); EOSINOPHILS 0.1 % (0-7); HEMATOCRIT 27.2 % (36.0-48.0); HEMOGLOBIN 8.8 g/dL (12-16); IMMATURE GRANULOCYTES 1.1 % (0-5); LYMPHOCYTES 11.4 % (15-50); MCH 27.8 pg (26.0-34.0); MCHC 32.4 g/dL (31.0-37.0); MCV 86.1 fL (80.0-100.0); MEAN PLATELET VOLUME 9.7 fL (7.4-10.4); MONOCYTES 7.9 % (2-11); NEUTROPHILS 79.4 % (40-80); RBC 3.16 10x6/uL (4.00-5.40); RDW 15.4 % (11.5-14.5); WBC 19.2 10x3/uL (4.8-10.8)
[2019-02-18 18:22] LABS: PLATELET COUNT 97 10x3/uL (130-400)
--- NOTE | 2019-02-18 19:15 | NUR ---
NURSES FROM LABOR AND DELIVERY AND FROM NURSERY HERE CHECKING ON PT INFORMING NURSES OF CARE OF PT. MODERATE AMOUNT OF SEROSANGUINOUS DRAINAGE FROM VAGINA PER REPORT FROM DAY SHIFT PT HAD SOAKED THROUGH A JUAN PAPER PAD. THIS WAS CALLED TO DR WARNER PER DAYSHIFT.
--- NOTE | 2019-02-18 20:45 | NUR ---
DOWN TO LABOR AND DELIVERY TO GET PERIPADS SPOKE WITH RN NELSON WHO OFFERED TO COME AND INSTRUCT EDUCATE AND DEMONSTRATE CARE TO RNS ON UNIT.
--- NOTE | 2019-02-18 21:00 | NUR ---
RN TO UNIT TO ASSIST WITH FUNDAL CHECK AND PERICARE. FUNDUS FIRM MIDLINE AND U2 WITH SMALL TO MODERATE AMT RUBRA LOCHIA, NO CLOTS NOTED. VSS. ASSISTED WITH PERICARE. BACK TO L&D PER PT AND SPOUSE REQUEST. PT REQUEST THAT [facility] BE CONTACTED REGARDING PRICING OF SERVICES AND BURIAL OF INFANT.
[2019-02-18 21:05] LABS: BASOPHILS 0.1 % (0-2); EOSINOPHILS 0.1 % (0-7); HEMOGLOBIN 7.9 g/dL (12-16); IMMATURE GRANULOCYTES 0.7 % (0-5); LYMPHOCYTES 11.7 % (15-50); MCH 28.1 pg (26.0-34.0); MCHC 32.9 g/dL (31.0-37.0); MEAN PLATELET VOLUME 10.7 fL (7.4-10.4); MONOCYTES 9.1 % (2-11); NEUTROPHILS 78.3 % (40-80); RBC 2.81 10x6/uL (4.00-5.40); RDW 15.3 % (11.5-14.5); WBC 19.8 10x3/uL (4.8-10.8)
[2019-02-18 21:11] LABS: MCV 85.4 fL (80.0-100.0); PLATELET COUNT 102 10x3/uL (130-400)
--- NOTE | 2019-02-18 22:00 | NUR ---
DR KUMAR ON UNIT ASSESSING PT INFORMED OF HGB AND HCT RESULTS HE STATED HE WAS OK WITH NOT TRANSFUSING WOULD LEAVE UP TO OBGYN DR WARNER WHO TOLD DAY SHIFT NURSE SHE WOULD CHECK RESULTS AT HOME DID NOT NEED RESULTS CALLED TO HER BUT IF NURSES HAD ANY QUESTIONS NOT TO HESITATE TO CALL
--- NOTE | 2019-02-18 22:40 | NUR ---
DR WARNER NURSING EXECUTIVE CALLED TO CHECK ON PT STATUS GIVEN AND INFORMED THAT SASHA HAD JUST BEEN UP AND STATED HE WAS OK NOT TRANSFUSING BUT UP TO OBGYN. SHE STATED GO AHEAD AND GET 2300 CBC AND CALL RESULTS
[2019-02-18 23:21] LABS: BASOPHILS 0.1 % (0-2); EOSINOPHILS 0.1 % (0-7); HEMATOCRIT 21.7 % (36.0-48.0); IMMATURE GRANULOCYTES 0.6 % (0-5); LYMPHOCYTES 14.8 % (15-50); MCH 27.5 pg (26.0-34.0); MCHC 32.3 g/dL (31.0-37.0); MCV 85.1 fL (80.0-100.0); MEAN PLATELET VOLUME 10.8 fL (7.4-10.4); MONOCYTES 7.8 % (2-11); NEUTROPHILS 76.6 % (40-80); PLATELET COUNT 93 10x3/uL (130-400); RBC 2.55 10x6/uL (4.00-5.40); RDW 15.5 % (11.5-14.5); WBC 15.4 10x3/uL (4.8-10.8)
--- NOTE | 2019-02-18 23:30 | NUR ---
DISCUSSED WITH PT REMOVAL OPTIONS OF BURIAL VS CREMATION. PT AND SPOUSE STATE THAT THEY WANT BURIAL AND REQUEST RN CONTACT [facility] FOR PRICING OPTIONS. WILL CONTACT EACH FACILITY AND NOTIFY PT AND SPOUSE OF INFO FOUND.
--- NOTE | 2019-02-18 23:30 | NUR ---
NELSON BRADY RN FROM LABOR AND DELIVERY HERE SPEAKING WITH PT AND FAMILY ABOUT HOME DECISIONS.
--- NOTE | 2019-02-18 23:38 | NUR ---
SPOKE WITH [facility]SP[facility] TECHNICIAN. INFO OBTAINED AND GIVEN TO SPOUSE, HE STATES THAT HE WILL DISCUSS WITH PT.
--- NOTE | 2019-02-18 23:41 | NUR ---
[facility] ANSWER[facility] SERV[facility] CONTACTED AND WILL PAGE DIRECTOR TO CALL UNIT. PT AND SPOUSE NOTIFIED.
--- NOTE | 2019-02-18 23:50 | NUR ---
DR WARNER CALLED BACK HAD SEEN THE H&h LAB RESULTS THAT HAD DROPPED INFORMED OF PT VITAL SIGNS AND URINE OUTPUT AND DECREASE IN BLEEDING NOTED VAGINALLY INFORMED THAT NELSON WAS HERE TALKING WITH FAMILY AND HOME AND WE WERE ABOUT TO CHECK PT FUNDUS AND CALL HER WITH THE INFO. DR WARNER SPOKE WITH NELSON THE L&D NURSE THEN ORDERED FOR PT TO RECEIVE 2 U PRBC OVER 1.5 -2 HOURS EACH. TO CANCEL THE SERIAL LAB DRAWS AND TO DRAW POST CBC 2 HOURS AFTER THE 2 UNITS HAD BEEN TRANSFUSED AND SHE WOULD MAKE DECISION ABOUT FURTHER LAB DRAWS. SHE ALSO ORDERED PREMED WITH BENADRYL 25 MG AND TYLENOL 650 MG PO
[2019-02-19] VITALS (15 sets, daily range): BP systolic 84–108; BP diastolic 51–68; Ht 152.4 cm; Wt 74.6 kg
--- NOTE | 2019-02-19 00:18 | NUR ---
NO CALL BACK REC'D FROM [facility], PAGED AGAIN, SPOKE WITH ANSWERING HOG WORKER, AWAITING CALL BACK.
--- NOTE | 2019-02-19 00:30 | NUR ---
FIRST PRBC UNIT STARTED INFORMED PT AND FAMILY OF S/S TO REPORT WITH VERBALIZATION OF UNDERSTANDING. PT ALSO ASKED IF RN WOULD CALL DOWN FOR HER TO BE ABLE TO SEE THE BABY. CALLED NURSERY AND STATED PT WOULD LIKE TO SEE BABY INFORMED THEY WOULD BRING BABY UP
--- NOTE | 2019-02-19 00:52 | NUR ---
INFANT TO PT ROOM PER REQUEST.
--- NOTE | 2019-02-19 01:00 | NUR ---
NELSON FROM WOMENS UNIT UP WITH BABY SPEAKING WITH FAMILY AND PT
--- NOTE | 2019-02-19 01:09 | NUR ---
PT CALLS REQUEST INFANT BE TAKEN BACK TO L&D. REQUEST REMOVAL OF BE DONE BY [facility]. PT REQUESTS THAT INFANT BE BROUGHT BACK TO ROOM FOR GOOD-BYES PRIOR TO HOME PERSONNEL RESEARCH PSYCHOLOGIST TAKING .
--- NOTE | 2019-02-19 01:12 | NUR ---
PT AND SPOUSE REQUEST REMOVAL OF BE DONE BY [facility]. MORE CONTACTED AND REPORTS THAT HE WILL COME TO HOSPITAL FOR REMOVAL IN APPROXIMATELY 1 HOUR. PT AND SPOUSE NOTIFIED.
--- NOTE | 2019-02-19 02:00 | NUR ---
PT FAMILY MEMBER OUT TO NURSES STATION ASKING IF PTS B/P WAS OK SBP 95. IN TO CHECK ON PT AND PRBC INFUSION PT RESTING SOUNDLY FOR FIRST TIME THIS SHIFT HEART RATE DOWN BELOW 100 96 AT THIS TIME INFORMED VSS AND WOULD CONTINUE TO MONITOR
--- NOTE | 2019-02-19 02:08 | NUR ---
[facility] MANAGER [facility] ON L&D FOR REMOVAL OF . WILL TAKE TO MOM'S ROOM FOR CLOSURE PER PT REQUEST.
--- NOTE | 2019-02-19 02:13 | NUR ---
INFANT BROUGHT TO PT ROOM PER REQUEST PRIOR TO MORE HOME SENIOR NET ENGINEER TAKING .
--- NOTE | 2019-02-19 04:45 | NUR ---
FUNDUS FIRM, MIDLINE AND U2 WITH SMALL AMT RUBRA LOCHIA, 9 MLS RUBRA LOCHIA ON PERIPAD. NO CLOTS NOTED. PERICARE DONE. 280 MLS CONCENTRATED URINE EMPTIED FROM UROMETER. BED IN LOW POSITION WITH SRUP X2, CALL LIGHT AND PHONE WITHIN REACH.
--- NOTE | 2019-02-19 06:00 | NUR ---
SECOND UNIT PRBC TRANSFUSION COMPLETE. PER DR WARNER ORDER CBC CHECK 2 HOURS POST TRANSFUSION AND SHE WILL GO FROM THAT RESULT ON FURTHER LAB ORDERS
[2019-02-19 08:06] LABS: BASOPHILS 0.1 % (0-2); EOSINOPHILS 0.5 % (0-7); HEMATOCRIT 27.8 % (36.0-48.0); IMMATURE GRANULOCYTES 0.4 % (0-5); LYMPHOCYTES 17.5 % (15-50); MCH 27.6 pg (26.0-34.0); MCHC 32.4 g/dL (31.0-37.0); MCV 85.3 fL (80.0-100.0); MONOCYTES 9.2 % (2-11); NEUTROPHILS 72.3 % (40-80); PLATELET COUNT 86 10x3/uL (130-400); RBC 3.26 10x6/uL (4.00-5.40); RDW 15.9 % (11.5-14.5)
[2019-02-19 08:07] LABS: WBC 12.7 10x3/uL (4.8-10.8)
--- NOTE | 2019-02-19 08:47 | NUR ---
RECIEVED AWAKE ALERT-FAMILY SITTING WITH PT FOR GRIEVING PROCESS-AND EMOTIONAL SUPPORT-L AC IV INFUSING LR AT 125 ML/H-MORPHINE ENTERTAINMENT LAWYER SECURED TO PT HAND AND USED NEEDED LAB DRAWN FOR CBC-FOUND ALL OTHER ORDERS CANCELLED-NOTIFIED LAB REGARDING SAME-STATED DIRECTED BY PREVIOUS SHIFT TO CANCEL ORDERS AND NEW WOULD BE SCHEDULED DEPENDENT ON CBC RESULTS
--- NOTE | 2019-02-19 10:20 | NUR ---
DR WARNER AT BEDSIDE-REVIEWED WITH PT PLAN OF CARE -LR 1 LITRE FLUID CHALLENGE STARTED DEMONSTRATED AND RETURN IS DONE-REPEATED X 5
[2019-02-19 12:05] LABS: BASOPHILS 0.1 % (0-2); EOSINOPHILS 0.8 % (0-7); HEMATOCRIT 26.1 % (36.0-48.0); HEMOGLOBIN 8.6 g/dL (12-16); IMMATURE GRANULOCYTES 0.3 % (0-5); LYMPHOCYTES 15.6 % (15-50); MEAN PLATELET VOLUME 11.4 fL (7.4-10.4); MONOCYTES 9.1 % (2-11); NEUTROPHILS 74.1 % (40-80); PLATELET COUNT 96 10x3/uL (130-400); RBC 3.07 10x6/uL (4.00-5.40); WBC 11.5 10x3/uL (4.8-10.8)
[2019-02-19 12:32] LABS: PLATELET ESTIMATE DECREASED
--- NOTE | 2019-02-19 14:45 | NUR ---
RECEIVED VIA BED FROM CVICU. REPORT RECEIVED. ORIENTED BUT DROWSY. RESPONDS TO QUESTIONS APPROPRIATELY. IV LR INFUSING AT 125 ML/HR PER ALARIS PUMP. MORPHINE CDL FLATBED TRUCK DRIVER NOTED. SCD'S IN PLACE BILATERALLY AND WORKING. COOK CATH PRESENT WITH SCANT URINE IN BAG. WILL START I&O FROM THIS TIME. VS OBTAINED. SIDERAILS UP X 2, CALL LIGHT IN REACH. NOTED PULSE OX RANGE FROM 92% TO 95%. ENCOURAGED DEEP BREATHING AND COUGHING. USED INCENTIVE SPIROMETER X 3 AT THIS TIME. FRESH WATER GIVEN. /10 INCISIONAL SHARP PAIN. SAYS SHE HAS BEEN TRYING NOT TO USE CDL FLATBED TRUCK DRIVER TOO OFTEN. EYES CLOSE BETWEEN CONVERSATIONS. DISCUSSED POC TO INCLUDE POSITION CHANGED, TCDB-INCENTIVE SPIROMETER AND ANTICIPATION OF PO MEDJOEY [place], AMBULATION THIS EVENING.
--- NOTE | 2019-02-19 14:50 | NUR ---
DR ALVAREZ IN ROOM TALKING TO PATIENT AND .
--- NOTE | 2019-02-19 14:56 | NUR ---
DR KUMAR AT BEDSIDE-CATH [id number] [id number] CHANGED-REPORT GIVEN TO LYNNETTE TRANSFERRED ON BED
--- NOTE | 2019-02-19 15:05 | NUR ---
DR ALVAREZ OUT OF ROOM. INFORMED PATIENT THAT PASTORAL CARE IS AVAILABLE AND MD ASKED ABOUT CASE MANAGEMENT CONSULT.
--- NOTE | 2019-02-19 15:10 | NUR ---
ASSESSMENT COMPLETED. SEE SHIFT ASSESSMENT.
--- NOTE | 2019-02-19 15:20 | NUR ---
DR WARNER NOTIFIED SHALLOW BREATHING WITH AT 34 BPM. PULSE OX RANGE 92-95% WITH C/O CHEST TIGHTNESS SINCE YESTERDAY. MD AWARE OF COMPLAINTS SINCE THIS AM ROUNDS. ORDERS RECEIVED. LUNGS REMAIN CLEAR AND INCENTIVE SPIROMETER IN USE.
--- NOTE | 2019-02-19 16:00 | NUR ---
LOOP CUTTER MORPHINE DC'D WITH 27 ML LEFT. IV LR CONTINUED AT 125 ML/HR. SIDERAILS UP X 2, CALL LIGHT IN REACH, AROUSES EASILY. EXPLAINED PLAN FOR PO MEDICATIONS AND CHECKING URINE OUTPUT BEFORE DCING COOK. VERBALIZED UNDERSTANDING.
--- NOTE | 2019-02-19 16:14 | NUR ---
DR WARNER NOTIFIED THAT URINE OUTPUT 250 ML IN 1 HOUR 20 MINS. ALSO NOTIFIED THAT PHARMACY ASKED ABOUT CHANGING MORPHINE FROM PO TABS TO LIQUID DUE TO DOSING OF 5 MG AND 10 MG TABS. THEY CURRENTLY 15 MG TABS. APPROVED CHANGE TO LIQUID. NEW ORDERS RECEIVED TO DC COOK AND AMBULATE.
--- NOTE | 2019-02-19 16:32 | NUR ---
FOB IN ROOM. REGULAR DIET SERVED. IV DECREASED TO 75 ML/HR PER MD ORDER. WILL DC JOEY WHEN PATIENT FINISHES EATING. VISITORS X 3 IN ROOM. INSTRUCTED PATIENT ON PLAN FOR PAIN MANAGEMENT AND AMBULATION. DROWSY BUT RESPONDS APPROPRIATELY. TO CONTINUE USE OF INCENTIVE SPIROMETER. SIDE RAILS UP X 2, CALL LIGHT IN REACH.
--- NOTE | 2019-02-19 16:50 | NUR ---
MORPINE 10 MG LIQUID GIVEN PO FOR RELIEF OF 8/10 INCISIONAL STABBING. SLIGHTLY DROWSY, CURRENTLY EATING REGULAR DIET. SIDERAILS UP X 2, CALL LIGHT IN REACH. IN ROOM. SCD'S WORKING BILATERALLY, IV INFUSING IN LEFT AC WITHOUT DIFFICULTY. TO CALL IF ANYTHING IS NEEDED.
--- NOTE | 2019-02-19 17:00 | NUR ---
JOEY RIGGS'Shorty WITHOUT DIFFICULTY. TIP INTACT. URINE OUTPUT 250 ML CLEAR URINE. SITTING UP IN BED EATING REGULAR DIET. CALL LIGHT IN REACH IN ROOM.
--- NOTE | 2019-02-19 17:53 | NUR ---
SITTING UP IN BED TILTED TO RIGHT SIDE. VISITORS AND IN ROOM. SAYS HER PAIN IS "BETTER. -08/24" SAYS SHE IS DOING OK. DR WARNER VISITED PT WITHIN THE LAST HOUR. SIDERAILS UP X 2, CALL LIGHT IN REACH. TO CALL IF ANYTHING IS NEEDED.
--- NOTE | 2019-02-19 18:57 | NUR ---
UP TO BATHROOM TO VOID. VOIDED 300+ ML URINE. 300 ML CAPTURED IN [place] HAT, SAYS SHE WENT A SECOND TIME BEHIND HAT. CANDACE-CARE COMPLETED WITH WARM WATER AND BETADINE. MICHAEL KINNEY ON CHUX WHEN PT STOOD UP TO GO TO BATHROOM. CLEAN UNDERWEAR AND CANDACE-PAD PLACED. DESIRES TO WAIT BEFORE AMBULATING IN [place]. CURRENTLY BRUSHING TEETH AND WASHING FACE. COMPLETE LINEN CHANGE DONE. PLANS RETURN TO BED AFTER FINISHING. SIDE RAILS UP X 2, CALL LIGHT IN REACH.
[2019-02-19 20:22] LABS: BASOPHILS 0.1 % (0-2); EOSINOPHILS 0.8 % (0-7); HEMATOCRIT 25.9 % (36.0-48.0); HEMOGLOBIN 8.5 g/dL (12-16); IMMATURE GRANULOCYTES 0.3 % (0-5); LYMPHOCYTES 12.9 % (15-50); MCH 27.8 pg (26.0-34.0); MCHC 32.8 g/dL (31.0-37.0); MCV 84.6 fL (80.0-100.0); MEAN PLATELET VOLUME 10.6 fL (7.4-10.4); MONOCYTES 8.8 % (2-11); NEUTROPHILS 77.1 % (40-80); PLATELET COUNT 130 10x3/uL (130-400); RBC 3.06 10x6/uL (4.00-5.40)
--- NOTE | 2019-02-19 20:45 | NUR ---
SHIFT ASSESSMENT COMPLETED PER FLOWSHEET. VSS. FUNDUS FIRM, MIDLINE AND U2 WITH SMALL AMT RUBRA LOCHIA, NO CLOTS. 50 MLS BLOODY DRAINAGE EMPTIED FROM FRANCES DRAIN TO LUQ OF ABD AND COMPRESSED. REPORTS THAT SHE IS PASSING FLATUS AND VOIDING. POC DISCUSSED WITH PT. 2+BLE EDEMA NOTED. RESP NOTED TO RANGE FROM 24-33 WHILE RN AT BEDSIDE, DYSPNEA ALSO NOTED AND PT REPORTS THAT WHEN LAID FLAT FOR FUNDAL ASSESSMENT SHE FELT LIKE SHE WAS HAVING A HARD TIME BREATHING, HOWEVER LESS EFFORT REQUIRED WHEN SITTING UP. WILL REPORT ASSESSMENT FINDINGS TO DR. WARNER. SCD'S ON BLE. INCENTIVE SPIROMETER DONE X10. COUGH AND DEEP BREATHING DONE WITH GOOD EFFORT. SPOUSE AND FAMILY MEMBER REMAIN AT BEDSIDE, BED IN LOW POSITION WITH SRUP X2. CALL LIGHT AND PHONE WITHIN REACH. WILL CONTINUE TO MONITOR.
--- NOTE | 2019-02-19 21:17 | NUR ---
DR. WARNER ON UNIT. REPORT GIVEN REGARDING ASSESSMENT FINDINGS OF PITTING 2+ BLE, DYSPNEA, AND TACHYPNEA. ORDERS REC'D TO D/C LR AND CTA CHEST TO R/O PE.
--- NOTE | 2019-02-19 21:34 | NUR ---
PT UPDATED ON POC, VERBALIZES UNDERSTANDING AND DENIES QUESTIONS. L A/C PIV SL. DENIES NEEDS.
--- NOTE | 2019-02-19 21:44 | NUR ---
RADIOLOGY TECHS ON UNIT TO TAKE PT FOR CTA.
--- NOTE | 2019-02-19 22:15 | NUR ---
REC'D BACK TO ROOM FROM CT. VSS. FUNDUS FIRM MIDLINE AND U1 WITH SMALL RUBRA LOCHIA NO CLOTS NOTED. AA&O X3, CONVERSING WITH SPOUSE AND VISITORS.
--- NOTE | 2019-02-19 22:43 | NUR ---
I&O DONE. BACK TO BED FOLLOWING VOID AT 2239, VOIDED 600 MLS CONCENTRATED YELLOW URINE IN HAT. C/O PAIN 09/24, ABD SORENESS WITH CONSTANT BURNING AND STINGING. MORPHINE GIVEN PER ORDER AND PT REQUEST. WILL CONTINUE TO MONITOR.
--- NOTE | 2019-02-19 23:20 | NUR ---
PAIN REASSESSMENT COMPLETED. REPORTS PAIN REMAINS 09/24. INCENTIVE SPIROMENTER DONE X10 AND COUGH DEEP BREATHING DONE WITH EXCELLENT EFFORT. DENIES NEED TO VOID AND REPOSITIONED SELF FROM BACK TO RIGHT SIDE. WILL REPORT PAIN AND CT FINDINGS TO DR. WARNER.
--- NOTE | 2019-02-19 23:32 | NUR ---
REPORT TO DR. WARNER REGARDING PAIN REASSESSMENT AND CT RESULTS. PER DR. WARNER ADMINISTER 4 MG IVP MORPHINE ONE TIME, INCREASE NEXT DOSE OF TORADOL TO 30 MG IVP Q6H ATC, CONTINUE WITH INCENTIVE SPIROMENTER USE.
--- NOTE | 2019-02-20 00:01 | NUR ---
PT AND SPOUSE UPDATED ON CHANGES IN POC. PAIN REMAINS 8/10. 4 MG IVP MORPHINE GIVEN PER ORDER, EDUCATED ON MED AND VERBALIZES UNDERSTANDING. INCENTIVE SPIROMETER DONE. PT TEARFUL, REPORTS THAT SHE IS CRYING D/T PAIN. ENCOURAGED AMBULATION IN [place], REFUSES AT THIS TIME. EDUCATED ON IMPORTANCE OF ACTIVITY IN PREVENTION OF RESP COMPLICATIONS, VERBALIZES UNDERSTANDING. ICE WATER PROVIDED. SCD'S ON BLE. WILL CONTINUE TO MONITOR. SPOUSE SUPPORTIVE AND ATTENTIVE TO PT NEEDS. BED IN LOW POSITION WITH SRUP X2. CALL LIGHT AND PHONE WITHIN REACH. WILL CONTINUE TO MONITOR.
--- NOTE | 2019-02-20 00:29 | NUR ---
PAIN REASSESSMENT COMPLETED. RESTING WITH EYES CLOSED LAYING IN RIGHT SIDE, RESP REGULAR AND UNLABORED, NO S/S OF DISTRESS NOTED. SNORING OCCASIONALLY. SPOUSE RESTING ON COUCH AT BEDSIDE. SCD'S ON BLE. BED IN LOW POSITION WITH SRUP X2. CALL LIGHT AND PHONE WITHIN REACH. WILL CONTINUE TO MONITOR.
--- NOTE | 2019-02-20 01:15 | NUR ---
UP TO BR WITH STANDBY ASSIST. STEADY GAIT NOTED. VOIDED 500 MLS LIGHT YELLOW URINE IN HAT, WITH HALF DOLLAR SIZED CLOT NOTED FOLLOWING VOID. PERICARE PER PT. PERIPAD CHANGED WITH 2 MLS RUBRA LOCHIA AND DIME SIZED CLOTS NOTED. AMBULATED APPROXIMATELY 25 FEET IN [place] AND BACK TO BED. C/O OF DIZZINESS WHILE AMBULATING IN [place], W/C PUSHED BEHIND PT BACK TO ROOM. VSS. FUNDUS REMAINS FIRM, MIDLINE AND U2 WITH NO LOCHIA TO PERIPAD AT THIS TIME. REPORTS THAT DIZZINESS SUBSIDED FOLLOWING GETTING BACK IN BED. WILL CONTINUE TO MONITOR AND ASSIST PRN. SCD'S BACK ON BLE. INCENTIVE SPIROMETER DONE X10 AND COUGHING AND DEEP BREATHING DONE WITH GOOD EFFORT. BED IN LOW POSITION WITH SRUP X2. CALL LIGHT AND PHONE WITHIN REACH. WILL CONTINUE TO MONITOR AND ASSIST PRN. SPOUSE RESTING ON COUCH AT BEDSIDE.
--- NOTE | 2019-02-20 02:45 | NUR ---
C/O ABD AND INCISIONAL DISCOMFORT 08/24. SCHEDULED TORADOL GIVEN PER ORDER AND MORPHINE GIVEN PER ORDER AND PT REQUEST. NO DRAINAGE NOTED TO FRANCES DRAIN. DRSG TO FRANCES DRAIN CHANGED, NO S/S OF INFECTION NOTED AT FRANCES DRAIN INSERTION SITE. FRANCES DRAIN REMAINS COMPRESSED. NO NEW DRAINAGE NOTED TO EPIGASTRIC VERTICAL DRSG AND DRSG TO LOWER TRANSVERSE ABD INCISION REMAINS CLEAN, DRY AND INTACT. INCENTIVE SPIROMETER DONE X10, COUGH AND DEEP BREATHING DONE WITH GOOD EFFORT. REPOSITIONED SELF FROM RIGHT SIDE TO BACK. SCD'S REMAIN ON BLE. ICE WATER AND ICE PROVIDED. ROOM TEMP DECREASED PER REQUEST. DENIES ADDITIONAL NEEDS. SPOUSE RESTING ON COUCH AT BEDSIDE. BED IN LOW POSITION WITH SRUP X2. CALL LIGHT AND PHONE WITHIN REACH. WILL CONTINUE TO MONITOR.
--- NOTE | 2019-02-20 03:23 | NUR ---
PAIN REASSESSMENT COMPLETED. RESTING QUIETLY IN SEMI-FOWLERS POSITION WITH EYES CLOSED. RESP REGULAR AND UNLABORED, NO S/S OF DISTRESS NOTED. SPOUSE REMAINS ON COUCH AT BEDSIDE. BED IN LOW POSITION WITH SRUP X2. CALL LIGHT AND PHONE WITHIN REACH. WILL CONTINUE TO MONITOR.
[2019-02-20 04:48] VITALS: BP 103/58
--- NOTE | 2019-02-20 04:50 | NUR ---
ROOM CHECK. PT RESTING QUIETLY IN BED. VS OBTAINED AND STABLE. PT DENIES ANY NEEDS AT THIS TIME.
[2019-02-20 06:30] LABS: BASOPHILS 0.1 % (0-2); EOSINOPHILS 1.4 % (0-7); HEMATOCRIT 24.6 % (36.0-48.0); HEMOGLOBIN 8.1 g/dL (12-16); IMMATURE GRANULOCYTES 0.2 % (0-5); LYMPHOCYTES 17.8 % (15-50); MCH 27.8 pg (26.0-34.0); MCHC 32.9 g/dL (31.0-37.0); MCV 84.5 fL (80.0-100.0); MEAN PLATELET VOLUME 10.7 fL (7.4-10.4); MONOCYTES 8.7 % (2-11); NEUTROPHILS 71.8 % (40-80); PLATELET COUNT 154 10x3/uL (130-400); RBC 2.91 10x6/uL (4.00-5.40); RDW 16.1 % (11.5-14.5); WBC 12.2 10x3/uL (4.8-10.8)
--- NOTE | 2019-02-20 06:45 | NUR ---
UP TO BR WITH STANDBY ASSIST OF RN. STEADY GAIT NOTED. VOIDED 700 MLS LIGHT YELLOW URINE IN HAT. NO LOCHIA TO PERIPAD, NO CLOTS NOTED. 75 MLS BLOODY DRAINAGE EMPTIED FROM FRANCES DRAIN, DRAIN COMPRESSED. C/O PAIN 08/24, MORPHINE GIVEN PER REQUEST. CHLORASEPTIC SPRAY PROVIDED AND PT INSTRUCTED ON USE, VERBALIZES AND DEMONSTRATES UNDERSTANDING. ICE WATER AND ICE PROVIDED. REFUSES SCD'S AT THIS TIME. INCENTIVE SPIROMETER DONE X10, COUGH AND DEEP BREATHING DONE WITH GOOD EFFORT. DENIES ADDITIONAL NEEDS. BED IN LOW POSITION WITH SRUP X2. CALL LIGHT AND PHONE WITHIN REACH.
--- NOTE | 2019-02-20 07:00 | NUR ---
REPORT RECEIVED FROM QUINTIN BENZ.
--- NOTE | 2019-02-20 07:15 | NUR ---
IN TO SEE PATIENT. AT BEDSIDE. ASSISTED TO SITTING AND REGULAR BREAKFAST TRAY GIVEN. NO COMPLAINTS OR NEEDS AT THIS TIME.
--- NOTE | 2019-02-20 08:00 | NUR ---
ASSESSMENT COMPLETED. SEE FLOWSHEET. PATIENT AWAKE, ALERT. AT BEDSIDE. LUNGS CLEAR, BUT NON-PRODUCTIVE COUGH NOTED. PATIENT STATES SHE IS USING THE INCENTIVE SPIROMETER. VERTICAL UPPER ABDOMENAL INCISION DRESSSING ON WITH DRAINAGE NOTED FROM PREVIOUS SHIFT. NO NEW DRAINAGE NOTED ON DRESSING. LOW TRANSVERSE DRESSING INTACT WITHOUT DRAINAGE NOTED. FUNDUS FIRM 1 BELOW THE UMBILICUS. FLOW SCANT, RUBRA. LOWER EXTREMITIES NOTED TO HAVE 1+ EDEMA. NO PITTING NOTED. PEDAL PULSES PRESENT. NO COMPLAINTS OF PAIN AT THIS TIME. ATE SMALL AMOUNT OF BREAKFAST AND TOLERATING WELL. FRESH ICE AND WATER GIVEN.
[2019-02-20 08:15] VITALS: BP 103/58
--- NOTE | 2019-02-20 08:43 | NUR ---
DR. AMBROCIO HERE TO SEE PATIENT.
--- NOTE | 2019-02-20 09:00 | NUR ---
ASSISTED TO BATHROOM. GAIT STEADY;NO DIZZINESS NOTED. VOIDED WITHOUT DIFFICULTY. ASSISTED BACK TO BED. FRANCES DRAIN EMPTIED AND COMPRESSED. FRANCES DRESSING CHANGED. SMALL AMOUNT RED DRAINAGE FROM RIGHT SIDE OF INCISION. PERIPAD APPLIED TO KEEP INCISION DRY AND TO MONITOR DRAINAGE.
--- NOTE | 2019-02-20 09:47 | OP ---
PATIENT NAME: ALLAN REYES MEDICAL RECORD: [id number] :95 LOCATION:[facility] [id number] ADMISSION DATE:02/18/19 SURGEON: JANESSA KUMAR MD DATE OF OPERATION: 02/18/2019 PREOPERATIVE DIAGNOSIS: Hemoperitoneum. POSTOPERATIVE DIAGNOSIS: Hemoperitoneum with no evidence of upper abdominal ongoing hemorrhage. PROCEDURE: Emergency exploratory laparotomy for trauma. SURGEON: Janessa Kumar MD EMS INSTRUCTOR: Dr. Manpreet López BLOOD LOSS: No new blood loss from the laparotomy. Consent could not be obtained from the patient as this was an emergency consultation and operation and the patient was already under general anesthesia. DESCRIPTION OF THE PROCEDURE: I was called to see the patient emergently due to ongoing hemorrhage. I came and assisted Dr. Warner with evaluation of the lower abdomen and pelvis. I was able to also look into the upper abdomen and identified what appeared to be fresh blood under the right diaphragm as well as along the right side of the liver. There was some blood in the left upper quadrant as well and this appeared to be fresh. I assisted her with evaluation of the space around the bladder as well as the uterus. She placed some additional sutures for hemorrhage control. We ran portions of the small bowel and identified no iatrogenic injury and no evidence of bleeding. The omentum revealed no evidence of bleeding either. We irrigated and aspirated in the upper quadrants. My participation in this portion of the operation was minimal. We then looked in the upper quadrants again and there appeared to be new ongoing hemorrhage, with fresh blood pooling in the upper quadrant. The patient gave a history of fall right before coming to the hospital and we were concerned that there may be a solid organ injury in the upper abdomen. I elected for an exploratory laparotomy. This was done through a small upper midline incision. I sharply dissected down through skin and subcutaneous tissues. The peritoneal cavity was entered sharply in the midline. I evaluated the right and left upper quadrants. I packed the left upper quadrant. We suctioned blood. We irrigated further. I palpated the liver and examined Rapp's pouch. I evaluated the transverse colon. There was some bruising along the greater curve of the stomach but no evidence of ongoing hemorrhage. I noted no blood in the lesser sac. I palpated the spleen and also OPERATIVE REPORT [id number] ETHEL REYESISTA Chanda was able to visualize it and I identified no evidence of a splenic injury. Further irrigation was performed both in the right and left upper quadrants. I identified no evidence of ongoing hemorrhage. Dr. Warner and Dr. López closed the Pfannenstiel incision. I placed a closed suction drainage tube out through the left flank and put this up under the left diaphragm. The drain was sutured to skin with a 2-0 nylon. The midline fascia was closed with running looped #1 PDS. The subdermis was approximated with interrupted 3-0 Vicryls. The skin was approximated with metallic clips. The patient was then conveyed to the intensive care unit in critical condition. TRANSINT:[id number] Voice Confirmation ID: [id number] DOCUMENT ID: [id number] JANESSA KUMAR MD at 0947 CC: JENY WARNER DO, COLGROVE, MICHAEL W MD and GRACIELA MORE [id number] DICTATION DATE: 02/19/19 1518 MACHINE GROUP LEADER: 02/19/19 191 ADM IN [facility] [address] [id number]
--- NOTE | 2019-02-20 11:00 | NUR ---
FRANCES DRAIN REMOVED PER ORDER. DRAIN INTACT. PRESSURE DRESSING APPLIED USING 4X4 AND TAPE. AND VISITORS AT BEDSIDE.
--- NOTE | 2019-02-20 12:20 | NUR ---
PREVIOUS NOTED SAVED FROM 02/18/2019 1343-UPON ENTRY TO C/S SUITE, PT ON OR BED INTUBATED. DR. RASCON AT [facility]. DR. WARNER AND ABIEL, SAFETY INVESTIGATOR/CAUSE ANALYST SCRUBBED IN AT OR TABLE AT PT'S SIDE. BLOOD PRODUCTS IN ROOM.
--- NOTE | 2019-02-20 13:00 | NUR ---
ASSISTED TO BATHROOM TO VOID. GAIT STEADY. STATES IS "A LITTLE DIZZY" WHEN UP WALKING. ABLE TO EMPTY BLADDER WITHOUT DIFFICULTY. GAUZE DRESSING OVER FRANCES DRAIN SITE SATURATED WITH SEROUS FLUID. CLEAN PRESSURE DRESSING APPLIED. NO C/O PAIN AT THIS TIME.
--- NOTE | 2019-02-20 13:41 | NUR ---
PT DISCHARGED HOME WITH FAMILY MEMBER TO PRIVATE VEHICLE VIA WHEELCHAIR IN STABLE CONDITION.
[2019-02-20 14:20] VITALS: BP 122/77
--- NOTE | 2019-02-20 14:20 | NUR ---
PT REQUESTING PAIN MEDICATION. IV TORADOL AND ORAL PAIN MED GIVEN. FRANCES DRAIN SITE DRESSING SATURATED WITH SEROUS FLUID. DRESSING CHANGED AND SECURED WITH PAPER TAPE TO DECREASE SKIN IRRITATION. PATIENT HAS HAD SEVERAL PRODUCTIVE COUGHS. SPUTUM HAS BEEN CLEAR WITH SOME DARK BROWN TINGE. LOW TRANSVERSE INCISION DRAINAGE IS SCANT AND SEROUS ON PERIPAD. VAGINAL BLEEDING ALSO SCANT AND RUBRA.
--- NOTE | 2019-02-20 15:15 | NUR ---
PT TRANSFERRED TO ROOM 1257. AMBULATED WITH ASSISTANCE TO ROOM WITHOUT DIZZINESS. GAIT STEADY. ORIENTED TO ROOM. BED IN LOW POSITION. SIDE RAILS UP X2. CALL LIGHT WITHIN REACH. AND VISITOR AT BEDSIDE. PT. STATES SHE WOULD LIKE TO SHOWER. DR. KUMAR PAGED TO INQUIRE ABOUT REMOVING VERTICAL ABDOMENAL INCISION DRESSING.
--- NOTE | 2019-02-20 15:49 | NUR ---
DR. KUMAR RETURNED PAGE. ORDER RECEIVED TO REMOVE DRESSING.
--- NOTE | 2019-02-20 16:00 | NUR ---
VERTICAL MIDLINE ABDOMENAL INCISION DRESSING REMOVED. INCISION INTACT WITH JAKE. IV'S COVERED AND PT UP TO SHOWER WITH ASSISTANCE FROM AND FEMALE VISITOR.
--- NOTE | 2019-02-20 16:41 | NUR ---
PT BACK IN BED. TOLERATED SHOWER VERY WELL AND STATES IS FEELING MUCH BETTER. FRANCES DRAIN SITE DRESSING CHANGED. AND VISITOR STILL AT BEDSIDE.
[2019-02-20 18:00] VITALS: BP 101/63
--- NOTE | 2019-02-20 18:01 | NUR ---
PT ALONE IN ROOM, RESTING WITH EYES CLOSED. AWAKENED FOR VITAL SIGNS.
--- NOTE | 2019-02-20 18:09 | NUR ---
PT TELEGRAPH OFFICE TELEPHONE CLERK LIGHT. FEELING VERY NAUSEATED. TO PT ROOM. EMESIS BAG HANDED TO PATIENT. COUGHING AND GAGGING. STATES HAD A BAD COUGHING EPISODE THAT LED TO GAGGING AND NAUSEA. SMALL AMOUNT OF EMESIS AND SPUTUM SPIT INTO BAG. BP AND PULSE TAKEN--106/63. P-85
--- NOTE | 2019-02-20 18:30 | NUR ---
PT. RESTING IN BED. STATES IS STILL NAUSEATED, BUT IS FEELING A LITTLE BETTER. REQUESTS PAIN MED. NORCO GIVEN. FAMILY AT BEDSIDE. BED REMAINS IN LOW POSITION WITH SIDE RAILS UP X2 AND CALL LIGHT WITHIN REACH. FRANCES DRAIN SITE DRESSING SATURATED WITH SEROUS FLUID. DRESSING CHANGED AND SECURED WITH PAPER TAPE.
--- NOTE | 2019-02-20 19:15 | NUR ---
PT REC'D IN BED AT THIS TIME WITH FAMILY. BEDSIDE REPORT REC'D. PT STATES THAT PAIN IS NOW A 5/10. WILL CONTINUE TO MONITOR. Madeline JONES RN
[2019-02-20 20:16] VITALS: BP 106/77
--- NOTE | 2019-02-20 20:16 | NUR ---
pt rec'd in bed at this time. states pain is now an 8/10. incision to upper abdomen intact with satples. no drainage or s/s of infection noted. c-secion incision intact also with vince. no s/s of infection noted. opening to left upper abdomen with serosanginous drainage noted. dressing changed at this time and patient tolerated well. family at the bedside and supportive at this time. pt instructed to try to ambulate at least 3 times a day to prevent post-op complications. understanding verbalized. no acute distress noted. call light in pt reach. sathya gomez rn
--- NOTE | 2019-02-20 20:45 | NUR ---
pt up ambulating with family. tolerating well. sathya gomez rn
--- NOTE | 2019-02-20 21:30 | NUR ---
pt states that pain is a 5-6 at this time. no distress noted. sathya gomez rn
--- NOTE | 2019-02-20 22:15 | NUR ---
CALLED TO PATIENT ROOM TO EXAMINE INCISIONS. PT CONCERNED REGARDING SMALL AMOUNT OF DRAINAGE NOTED. PT REASSURED THAT SOME DRAINAGE IS NORMAL DURING THE HEALING PROCESS. PT INFORMED ON S/S OF INFECTION AT THIS TIME. DRESSING TO FRANCES DRAIN SITE CHANGED AT THIS TIME. PT WANTS TO GO OFF UNIT. PT OFF UNIT VIA WHEELCHAIR WITH S/O. NO DISTRESS NOTED. Madeline JONES RN
[2019-02-20 23:10] VITALS: BP 114/73
--- NOTE | 2019-02-20 23:14 | NUR ---
PT MEDICATED FOR PAIN LEVEL OF 8/10. VITAL SIGNS STABLE. Madeline JONES RN
--- NOTE | 2019-02-21 00:15 | NUR ---
pt asleep at this time. did not awaken . resps even and unlabored. sathya gomez rn
--- NOTE | 2019-02-21 02:30 | NUR ---
pt rec'd up in room. c/o pain to upper right abdomen 11/24. pt medicated with toradol ivp. will continue to monitor. sathya gomez rn
--- NOTE | 2019-02-21 04:25 | NUR ---
pt resting comfortably at this time. no distress noted. sathya gomez rn
[2019-02-21 06:10] VITALS: BP 99/69
--- NOTE | 2019-02-21 06:10 | NUR ---
ptrec'd in bed asleep but easily awakened. rates pain at an 8/10 this am. will continue to monitor pain. pt encouraged to ambulate today. understanding verbalized. sathya gomez rn
--- NOTE | 2019-02-21 07:09 | NUR ---
entered room for bedside report- pt asleep- not disturbed at this time.
[2019-02-21 07:40] VITALS: BP 106/72
--- NOTE | 2019-02-21 07:54 | NUR ---
pt awake- sitting up in bed. reg diet at side. assessment done. verbal responses appro to questions. co pain rt side- stabbing burning feeling- denies passing any flatus yet. rates pain a 7 on scale of 0-10. abd soft. bowel sounds hypoactive. incision aove umbilicus with vince- appearance wnl. pfannensteil incision with vince- appearance wnl. dressing over the removed stevenson site -lt upper abd- changed with small sero sang drainage on old dressing. spoke with pt about ambulating more.
--- NOTE | 2019-02-21 08:35 | NUR ---
DR ARANGO IN UNIT- REPORT OF PT CO PAIN RT SIDE. NOT PASSING FLATUS. NEW ORDERS RECEIVED. POC DISCUSSED WITH PT.
--- NOTE | 2019-02-21 08:59 | NUR ---
PT ALERT NOTED THAT ALLERGIC TO CODIENE WHEN PLACING MED ORDER FOR PERCPCET ALTHOUGH PT HAD ONE TAB YESTERDAY. PHONED DR ARANGO CELL TO REPORT THIS- NOT ANSWER AT THIS TIME. PT STATES THAT SHE WILL TAKE NORCO FOR NOW. PT UP AND AMBULATING IN HALLWAYS.
--- NOTE | 2019-02-21 09:16 | NUR ---
PT AMBULATING IN HALLWAYS.
--- NOTE | 2019-02-21 11:32 | NUR ---
RESTING IN BED. STATES PAIN IS A LITTLE BETTER. DR WARNER CALLS UNIT- EXPLAINED PAIN MED ORDERS FROM DR ARANGO THIS AM. DR WARNER STATES THAT IF PT HAD A PERCOCET YESTERDAY THEN OK TO SWITCH TO PERCOCET FOR AIN.
--- NOTE | 2019-02-21 12:00 | NUR ---
ambulating in hallways. tolerating well.
--- NOTE | 2019-02-21 12:10 | NUR ---
dr reza here to see pt- views incisions- appearance wnl. new orders received.
--- NOTE | 2019-02-21 12:45 | NUR ---
PT STATES THAT IV IN HER RT AC IS ONE THAT IS BOTHERING HER- BOTH IV FLUSH EASILY- SALINE LOCK IN RT AC REMOVED WITH CATH TIP INTACT-PRESSURE HELD AND BANDAIDE APPLIED.
[2019-02-21 13:00] VITALS: BP 107/71
--- NOTE | 2019-02-21 13:01 | NUR ---
REQUESTING PAIN MEDICATION- CO PAIN ABD AND INCISION- RATES PAIN 8 ON SCALE OF 0-10. MED GIVEN.
[2019-02-21 16:30] VITALS: BP 109/79
--- NOTE | 2019-02-21 16:30 | NUR ---
VS DONE. ABD SOFT BUT BOWEL SOUNDS REMAIN HYPOACTIVE. DENIES PASSING GAS. STATES THAT ABD PAIN IS ABOUT AN 8 ON SCALE OF 0-10.
--- NOTE | 2019-02-21 17:15 | NUR ---
MEDS GIVEN FOR PAIN PER REQUEST.
--- NOTE | 2019-02-21 17:55 | NUR ---
AMBULATING IN HALLWAY WITH SIGN OTHER. TOLERATING WELL.
[2019-02-21 19:15] VITALS: BP 112/74
--- NOTE | 2019-02-21 19:15 | NUR ---
VSS. FRANCES DRAIN SITE DRESSED AT THIS TIME. PT STATES THAT PAIN IS A 7. WILL CONTINUE TO MONITOR. Madeline JONES RN
--- NOTE | 2019-02-21 20:10 | NUR ---
PT ASSESSED AT THIS TIME. SEE FLOWSHEET. NO DISTRESS NOTED. Madeline JONES RN
--- NOTE | 2019-02-21 20:30 | NUR ---
PT UP TO WALK. WARM APPLE JUICE GIVEN. LINENS CHANGED. Madeline JONES, RN
--- NOTE | 2019-02-21 21:47 | NUR ---
PATIENT MEDICATED WITH SCHEDULED MAALOZ AND PERCOCET. Madeline JONES RN
--- NOTE | 2019-02-21 22:15 | NUR ---
CALLED TO WAITING ROOM BY FAMILY STATEING THAT PATIENT WAS UP WAKLING AND GOT DIZZY. WHEELCHAIR TAKEN TO THE WAITING ROOM AND PATIENT TAKEN TO ROOM. VSS. PT STATES THAT SHE HAS LEFT SHOULDER PAIN. INFORMED PATIENT THAT SHE HAD GAS THAT SHE NEEDS TO PASS. PT INSTRUCTED TO GET SOME PAIN RELIEF AND GO TO THE RESTROOM. PT STATES THAT SHE FEELS BLOATED AND HAS SOME PRESSURE. NO DISTRESS NOTED AT THIS TIME. Madeline JONES RN
[2019-02-21 22:20] VITALS: BP 129/77
--- NOTE | 2019-02-21 23:10 | NUR ---
CALLED TO PATIENT ROOM AT THIS TIME TO CHECK SALINE LOCK TO THE LEFT AC. SALINE FLUSHED AND BLOOD RETURN NOTED. SITE LEAKING. IV CATH REMOVED. Madeline JONES RN
--- NOTE | 2019-02-22 00:40 | NUR ---
PT REC'D IN BED AT THIS TIME. RESTING AT THIS TIME. DID NOT AWAKEN. Madeline JONES RN
--- NOTE | 2019-02-22 01:49 | NUR ---
PT MEDICATED FOR PAIN AT THIS TIME. Madeline JONES RN
[2019-02-22 04:39] VITALS: BP 103/68
--- NOTE | 2019-02-22 04:39 | NUR ---
PT REC'D IN BED AT THIS TIME. VSS. PT C/O LEFT SHOULDER PAIN AT THIS TIME. Madeline JONES RN
--- NOTE | 2019-02-22 05:50 | NUR ---
PT RESTING COMFORTABLY AT THIS TIME. DID NOT AWAKEN . RESPS EVEN AND UNLABORED. Madeline JONES RN
--- NOTE | 2019-02-22 07:17 | NUR ---
PT ASLEEP AT THIS TIME. DID NOT AWAKEN. REPORT GIVEN IN HALLWAY AT THIS TIME. Madeline JONES RN
--- NOTE | 2019-02-22 07:25 | NUR ---
DR. WARNER AT NURSE DESK, VERBAL ORDER RECEIVED TO ADMINISTER A DULCOLAX SUPPOSITORY TO PT. STATES SHE HASN'T PASSED GAS YET, BUT SHE DOES HAVE GOOD BOWEL SOUNDS.
--- NOTE | 2019-02-22 08:01 | NUR ---
TO PTS ROOM, MEDICATION ORDERED BY DR. WARNER EXPLAINED TO PT. PERCOCET 10 MG ONE PO GIVEN FOR C/O INCISIONAL PAIN, SEE EMAR FOR ALL MEDS ADM BY THIS RN. DULCOLAX SUPP ALSO ADMIN SC WITH PT TURNED TO LEFT LATERAL SIDE WITH PILLOWS FOR SUPPORT AND COMFORT. SRUP X2, CALL LIGHT AND PHONE WITHIN REACH. PERIPANTIES AND PADS PROVIDED, ALONG WITH CLEAN LINENS.
--- NOTE | 2019-02-22 09:00 | NUR ---
PT REPORTS SHE WAS ABLE TO PASS "A LITTLE GAS WHEN I GOT UP TO THE BATHROOM JUST NOW". PT WISHES TO LIE BACK DOWN TO REST SOME MORE. PT IS ON LEFT LATERAL SIDE WITH PILLOWS FOR SUPPORT AND COMFORT. SRUP X2, CALL LIGHT AND PHONE WITHIN REACH. PT DENIES ALL OTHER NEEDS AT THIS TIME.
--- NOTE | 2019-02-22 12:05 | NUR ---
DR. WARNER ON UNIT, REPORT GIVEN TO MD THAT PT HAS PASSED GAS SEVERAL TIMES SINCE THIS MORNING. PT DENIES N/V, SOB, AND STATES "MY BELLY DOES FEEL A LOT BETTER NOW". MD TO ROOM TO SPEAK WITH PT.
--- NOTE | 2019-02-22 12:20 | NUR ---
VERBAL ORDER RECEIVED FROM DR. WARNER TO DISCHARGE PT HOME IF OK WITH DR. KUMAR.
[2019-02-22] MEDS ORDERED: PERCOCET 5-3251 TAB PO (14:42)
--- NOTE | 2019-02-22 15:10 | NUR ---
PT TAKEN OUT BY WHEELCHAIR IN STABLE CONDITION BY Heather BRUNER RN WITH SIG OTHER, AND PT'S FAMILY MEMBER.
--- NOTE | 2019-02-23 11:53 | OP ---
PATIENT NAME: ALLAN REYES MEDICAL RECORD: [id number] :95 LOCATION:[address] ADMISSION DATE:02/18/19 SURGEON: JENY WARNER DO DATE OF OPERATION: 02/18/2019 PREOPERATIVE DIAGNOSIS: Suspected placental abruption. POSTOPERATIVE DIAGNOSES: Confirmed 100% placental abruption and IUFD, suspected DIC. PRIMARY SURGEON: Jeny Warner DO DRUG ENFORCEMENT ADMINISTRATION AGENT SURGEON: Rene. INTRAOPERATIVE CONSULT: Dr. Marquez. ANESTHESIA: Dr. Ahuja. PROCEDURE: Primary low transverse section via Pfannenstiel incision, exploratory laparotomy. FINDINGS: Normal appearing uterus, bilateral fallopian tubes and bilateral ovaries. Upon entering the uterus, 100% placental abruption was noted. Fetus had no heartbeat at time of delivery. SPECIMENS: Placenta and cord. ESTIMATED BLOOD LOSS: 3.5 liters. URINE OUTPUT: 25 cc. COMPLICATIONS: Large amount of blood clots noted from the uterus after delivery of the fetus. Large amount of blood clots evacuated from the abdomen after closure of the hysterotomy to the unclear etiology of the blood inside the abdomen. A general surgery consult was placed and exploratory laparotomy was performed, which was dictated separately. No clear source of bleeding identified in the etiology likely due to the placental abruption. Uterine atony noted. The patient was given 50 units of Pitocin, 0.2 mg of IM Methergine, and 0.25 mg of IM Hemabate with good return in uterine tone. There was bleeding noted from the left uterine artery, which was suture ligated with good hemostasis and no expansion was noted. The patient in total was given 2 units of PRBCs, 2 units of FFP, and 1 gram of TXA intraop. As per pediatric record, the fetus was delivered at 1328 and we were in the room, anesthesia was in the room at 1326. DESCRIPTION OF PROCEDURE: The emergent nature of the section was discussed with the patient, who gave verbal consent to the procedure after the risks and benefits were discussed. She was taken to the OR where general anesthesia was administered and found to be adequate. She was placed in the dorsal supine position with a leftward tilt. A Pfannenstiel skin incision was made with a scalpel and carried down to the underlying layer of the fascia. The fascia was in the midline with the scalpel and it was bluntly dissected. The rectus muscle was in the midline down to the level of the peritoneum. The peritoneum was identified and noted to be free of adherent bowel and entered bluntly. The peritoneum was further with gentle OPERATIVE REPORT [id number] ALLAN REYES traction. The bladder blade was inserted. The uterus was incised in a transverse fashion in the lower uterine segment. The incision was extended with cephalad caudad traction. The infant was delivered without difficulty and no heartbeat was noted at that time. The cord was clamped and cut and the infant was emergently handed off to awaiting pediatricians. The placenta was noted to be 100% abrupted and was removed from the uterus. The uterus was exteriorized and a moist laparotomy sponge was used to assure complete removal of blood clots and membranes from the uterus. The hysterotomy was closed with a double layer closure with 0 Vicryl suture in a running locked fashion. Due to uterine atony extra Pitocin was given. Due to continued uterine atony after Pitocin administration, Methergine and Hemabate were both given IM. At that time good return and uterine tone was noted; however, large blood clots were noted from the right upper quadrant due to a history of a recent fall and unknown etiology of this blood. A surgical consult was placed. Surgery performed an exploratory laparotomy and all blood clots were removed from the right and left upper quadrant. The liver was inspected as well as the spleen at that time which was dictated separately. The abdomen was extensively irrigated and all blood clots and fluid were returned to be removed from the abdomen. A FRANCES drain was placed by general surgery. The uterus was placed back into the abdominal cavity and again a moist laparotomy sponge was used to assure complete removal of blood clots and fluid from the abdominal cavity. There was a spot on the left uterine artery that was noted to be bleeding, which was suture ligated with good hemostasis at that time. The hysterotomy was reinspected and noted to be hemostatic. The uterus was reinspected and noted to have good uterine tone and no further active bleeding was able to be identified. The rectus muscle was closed with 2-0 Monocryl in a running fashion with good hemostasis. Fascial incision was closed with 0 Vicryl in a running fashion with good hemostasis. The skin was closed with vince. The supraumbilical incision used for the exploratory laparotomy was closed by general surgery with good hemostasis. A count was unable to be performed prior to the section and so an x-ray was performed to ensure no instruments or lap sponges were retained in the intra-abdominal cavity and there were no retained instruments or sponges noted on that x-ray. The patient was placed in the ICU due to suspected DIC and was subsequently given 2 extra units of PRBCs overnight; however, she tolerated the procedure and was taken to the ICU in stable condition. TRANSINT:[id number] Voice Confirmation ID: [id number] DOCUMENT ID: [id number] JENY WARNER DO at 1153 CC: [id number] DICTATION DATE: 02/22/19 1111 CHAIR UPHOLSTERER: 02/22/19 1538 DIS IN 02/22/[id number] [place] [address]
--- NOTE | 2019-02-23 12:21 | MORECARE ---
CASE MANAGEMENT DISCHARGE SUMMARY PATIENT: ALLAN REYES UNIT: [id number] ADM DATE: 02/18/19 AGE: 23 : 95 SEX: F ROOM/BED: D.1257 AUTHOR: MAGNO ROMERO PHYSICIAN: REFERRING PHYSICIAN: JENY WARNER DO DATE OF SERVICE: 02/23/19 Discharge Plan Patient Name: ALLAN REYES Facility: [facility]:[place] : 1995 Planned Disposition: Anticipated Discharge Date: Discharge Date: 02/22/2019 Expected LOS: Initial Reviewer: [email or web address] Initial Review Date: 02/22/2019 Generated: 02/23/19 1:21 pm Patient Name: ALLAN REEYS Page [phone] at 1221 All edits/amendments must be made on the electronic document DICTATION DATE: 02/23/19 1221 STOCK DRIER TENDER: VENANCIO 02/23/19 1221 RPT#: [id number] DC DATE:02/22/19 STATUS: DIS IN [facility] [address] [place] [address] END OF REPORT
--- NOTE | 2019-02-23 12:31 | MORECARE ---
CASE MANAGEMENT DISCHARGE SUMMARY PATIENT: ALLAN REYES UNIT: [id number] ADM DATE: 02/18/19 AGE: 23 : 95 SEX: F ROOM/BED: D.1257 AUTHOR: NICKDOC PHYSICIAN: REFERRING PHYSICIAN: JENY WARNER DO DATE OF SERVICE: 02/23/19 Discharge Plan Patient Name: ALLAN REYES Facility: [facility]:[place] : 1995 Planned Disposition: Anticipated Discharge Date: Discharge Date: 02/22/2019 Expected LOS: Initial Reviewer: [email or web address] Initial Review Date: 02/22/2019 Generated: 02/23/19 1:30 pm Comments DCP- Discharge Planning Updated by [email or web address]: Lady Holly on 02/23/19 11:[address] CM met with patient and spouse at bedside after obtaining verbal consent. CM offered condolences regarding their loss. CM gave information on counseling at [facility]. Walk in Clinics and no need for an appointment if needed. CM left pamphlet with patient. CM will continue to follow and assist as needed. Last DP export: 02/23/19 11:21 am Patient Name: ALLAN REYES Page [phone] at 1231 All edits/amendments must be made on the electronic document DICTATION DATE: 02/23/19 1230 FOUNDRY MOLDER: VENACNIO 02/23/19 1230 RPT#: [id number] DC DATE:02/22/19 STATUS: DIS IN [facility] [address] [place] [address] END OF REPORT
== END 2019-02-22 15:00 | disposition home or self-care (01) | DRG 786 ==
LOC: D.ER 12:58 → D.LD 14:01 → D.CVICU 15:40 → D.LD 02-19 14:49
PROVIDERS: Anesthesiology; ADMIT Student in an Organized Health Care Education/Training Program; ATTEND Student in an Organized Health Care Education/Training Program
PROC: 04L Lower Arteries, Occlusion (ICD-10-PCS; 2019-02-18)
PROC: 0WJG0ZZ Inspection of Peritoneal Cavity, Open Approach (ICD-10-PCS; 2019-02-18)
PROC: 10D00Z1 Extraction of Products of Conception, Low, Open Approach (ICD-10-PCS; principal; 2019-02-18 14:51)
DX: O45.023 Premature separation of placenta with disseminated intravascular coagulation, third trimester (principal); K66.1 Hemoperitoneum; D62 Acute posthemorrhagic anemia; Z3A.31 31 weeks gestation of pregnancy; Z37.1 Single stillbirth; O99.02 Anemia complicating childbirth; O72.3 Postpartum coagulation defects; D69.6 Thrombocytopenia, unspecified; R55 Syncope and collapse; W18.30XA Fall on same level, unspecified, initial encounter

== ENCOUNTER 2019-03-02 00:23 | Outpatient (CLI) | payer MEDICAID ==
[2019-02-19 15:12] VITALS: BMI 34.0
[~2019-03-02 00:23] MED LIST changes: +PERCOCET 5-3251 TAB PO
--- NOTE | 2019-03-02 00:25 | NUR ---
PT IS A PATIENT WHO STATES THAT SHE WAS TOLD BY DR ALVAREZ TO COME TO THE LABOR UNIT FOR C/O A HEADACHE. OUTPATIENT PAPERWORK COMPLETED AND PT TO ROOM 1274 TO CHANGE INTO A GOWN.
[2019-03-02 00:34] VITALS: BP 128/73
--- NOTE | 2019-03-02 00:34 | NUR ---
PATIENT LYING IN BED. PRESENTS TO LABOR AND DELLIVERY WITH C/O HEADACHE, ABDOMINAL PAIN OVER ENTIRE ABDOMEN THAT SHE DESCRIBES CRAMPING AND A BURNING FEELING. PATIENT RATES HER PAIN 6/10. STATES THIS PAIN STARTED AT 2030 THIS EVENING. PATIENT STATES SHE TOOK HER PRESCRIPTION OF PERCOCET 10/325 PO AT 2100 THIS EVENING, BUT HAS HAD NO RELIEF. PATIENT ALSO STATES SHE HAS FELT TIRED AND WEAK. STATES HER BLEEDING HAS BEEN "LIGHT", DENIES BEING DIZZY. VITAL SIGNS DONE. T 98.5, BP 128/73, HR 66, RR 18, PULSE OX 97%. PATIENT DENIES NEEDS AT THIS TIME. BED IN LOWEST POSITION, SIDE RAILS UP X 2, C/L AND WATER WITHIN REACH.
--- NOTE | 2019-03-02 00:45 | NUR ---
CALLED AT THIS TIME. REPORT GIVEN THAT POST PATIENT PRESENTS TO LABOR AND DELIVERY PER WITH C/O HEADACHE AND ABDOMINAL PAIN. PATIENT RATES PAIN 6/10 WITH NO RELIEF FROM TAKING PERCOCET . STATES THIS PAIN STARTED AT 2030 THIS EVENING. VS REPORTED BP 128/73, HR 66, T 98.5. ORDERS RECEIVED TO CHECK BP OVER AN HOUR, ADMINISTER TORADOL 30 MG IM NOW, CBC, CMP, AND UA. MAY D/C HOME IF BP AND LABS ARE WNL. ORDERS REPEATED AND VERIFIED.
--- NOTE | 2019-03-02 00:53 | NUR ---
PATIENT LYING IN BED WITH EYES C LOSED. EASILY AROUSED. TORADOL 30 MG ADMINISTERED IM IN R VENTRAL GLUTEAL. PATIENT TOLERATED WELL.
[2019-03-02 01:17] VITALS: BP 117/66
--- NOTE | 2019-03-02 01:17 | NUR ---
BP TAKEN 117/99, HR 58.
--- NOTE | 2019-03-02 01:30 | NUR ---
PATIENT LYING QUIETLY IN BED WITH EYES CLOSED. EASILY AROUSED. STATES PAIN 5 OUT OF 10. DENIES ANY NEEDS AT THIS TIME. BED IN LOWEST POSITION, SIDE RAILS UP X 2, C/L WITHIN REACH.
--- NOTE | 2019-03-02 01:36 | NUR ---
LAB HERE TO DRAW LAB WORK.
[2019-03-02 01:44] LABS: BASOPHILS 0.2 % (0-2); HEMATOCRIT 26.6 % (36.0-48.0); HEMOGLOBIN 8.5 g/dL (12-16); IMMATURE GRANULOCYTES 0.4 % (0-5); LYMPHOCYTES 31.3 % (15-50); MCH 27.1 pg (26.0-34.0); MCV 84.7 fL (80.0-100.0); MEAN PLATELET VOLUME 8.8 fL (7.4-10.4); MONOCYTES 5.6 % (2-11); NEUTROPHILS 59.5 % (40-80); RBC 3.14 10x6/uL (4.00-5.40); RDW 15.5 % (11.5-14.5); WBC 8.6 10x3/uL (4.8-10.8)
[2019-03-02 01:46] LABS: PLATELET COUNT 369 10x3/uL (130-400)
[2019-03-02 01:47] VITALS: BP 114/66
--- NOTE | 2019-03-02 01:47 | NUR ---
VS DONE, BP 114/66, HR 60
[2019-03-02 01:50] LABS: CALC OSMOLALITY 282 mosm/kg (275-300); CALCIUM 7.6 mg/dL (8.5-10.1); CARBON DIOXIDE 25.7 mmol/L (21.0-32.0); CHLORIDE - SERUM 108 mmol/L (98-107); CREATININE - SERUM 0.5 mg/dL (0.6-1.3); POTASSIUM - SERUM 3.1 mmol/L (3.5-5.1); SODIUM 142 mmol/L (136-145); UREA NITROGEN 12 mg/dL (7-18); eGFR NON AFRICAN AMERICAN > 90 mL/min (90-120)
[2019-03-02 01:51] LABS: GLUCOSE 98 mg/dL (74-106)
[2019-03-02 01:56] LABS: ALBUMIN 2.2 g/dL (3.4-5.0); ALKALINE PHOSPHATASE 60 U/L (46-116); ALT (SGPT) 11 U/L (10-68); BILIRUBIN - TOTAL 0.21 mg/dL (0.2-1.3); PROTEIN - SERUM 5.7 g/dL (6.4-8.2)
[2019-03-02 02:08] LABS: APPEARANCE CLOUDY (CLEAR); BILIRUBIN NEGATIVE (NEGATIVE); COLOR PINK (YELLOW); GLUCOSE NEGATIVE (NEGATIVE); KETONE NEGATIVE (NEGATIVE); NITRITE NEGATIVE (NEGATIVE); PROTEIN TRACE mg/dL (NEGATIVE); SPECIFIC GRAVITY 1.005 (1.005-1.020); UROBILINOGEN NORMAL (NORMAL)
[2019-03-02 02:10] LABS: BACTERIA FEW /hpf (NEGATIVE); EPITHELIAL CELLS 0-5 /hpf (0-5); RED CELLS - URINE 0-5 /hpf (0-5); WHITE CELLS - URINE 0-5 /hpf (NEGATIVE)
--- NOTE | 2019-03-02 02:15 | NUR ---
CALLED AT THIS TIME. LAB RESULTS AND BP READINGS REPORTED. ORDERS RECEIVED TO DISCHARGE PATIENT HOME AND INSTRUCT PATIENT TO CALL AND FOLLOW UP WITH CLINIC. ORDERS REPEATED AND VERIFIED.
--- NOTE | 2019-03-02 02:30 | NUR ---
WRITTEN AND VERBAL DISCHARGE INSTRUCTIONS GIVEN TO PATIENT. INSTRUCTED PATIENT TO FOLLOW UP WITH OBGYN IN CLINIC. EDUCATED PATIENT ON SIGNS AND SYMPTOMS OF INFECTION. EDUCATED PATIENT ON SIGNS AND SYMPTOMS OF HEMMORRHAGE. EDUCATED PATIENT ON SIGNS AND SYMPTOMS OF PRE ECLAMPSIA. INSTRUCTED PATIENT TO RETURN WITH ANY CONCERNS. PATIENT VERBALIZES UNDERSTANDING.DENIES ANY QUESTIONS OR CONCERNS.
--- NOTE | 2019-03-02 02:35 | NUR ---
PATIENT LEFT UNIT AMBULATORY WITH STEADY GAIT. PATIENT ACCOMPANIED BY SIGNIFICANT OTHER. DENIES ANY QUESTIONS OR CONCERNS.
== END 2019-03-02 02:35 | disposition home or self-care (01) ==
LOC: D.LDO 00:23
PROVIDERS: ATTEND Obstetrics & Gynecology
DX: O26.899 Other specified pregnancy related conditions, unspecified trimester (principal)

== ENCOUNTER 2019-03-09 00:43 | Emergency (ER) | payer MEDICAID ==
[~2019-03-09] VITALS: Ht 152.4 cm; Wt 68.2 kg
[2019-03-09 00:48] VITALS: Ht 152.4 cm; Wt 68.2 kg
[2019-03-09 01:10] LABS: BASOPHILS 0.2 % (0-2); HEMATOCRIT 34.5 % (36.0-48.0); HEMOGLOBIN 10.8 g/dL (12-16); IMMATURE GRANULOCYTES 0.3 % (0-5); LYMPHOCYTES 35.4 % (15-50); MCH 26.5 pg (26.0-34.0); MCHC 31.3 g/dL (31.0-37.0); MCV 84.8 fL (80.0-100.0); MONOCYTES 6.1 % (2-11); PLATELET COUNT 380 10x3/uL (130-400); RBC 4.07 10x6/uL (4.00-5.40); RDW 15.3 % (11.5-14.5); WBC 9.5 10x3/uL (4.8-10.8)
[2019-03-09 01:25] LABS: CALC OSMOLALITY 277 mosm/kg (275-300); CALCIUM 8.3 mg/dL (8.5-10.1); CARBON DIOXIDE 24.5 mmol/L (21.0-32.0); CHLORIDE - SERUM 106 mmol/L (98-107); CREATININE - SERUM 0.7 mg/dL (0.6-1.3); GLUCOSE 92 mg/dL (74-106); POTASSIUM - SERUM 3.3 mmol/L (3.5-5.1); SODIUM 140 mmol/L (136-145); UREA NITROGEN 10 mg/dL (7-18); eGFR NON AFRICAN AMERICAN > 90 mL/min (90-120)
[2019-03-09 01:36] LABS: ALBUMIN 3.1 g/dL (3.4-5.0); ALKALINE PHOSPHATASE 65 U/L (46-116); ALT (SGPT) 12 U/L (10-68); BILIRUBIN - TOTAL 0.14 mg/dL (0.2-1.3); PROTEIN - SERUM 7.2 g/dL (6.4-8.2)
[2019-03-09 01:36] LABS: APPEARANCE CLEAR (CLEAR); COLOR YELLOW (YELLOW); SPECIFIC GRAVITY 1.005 (1.005-1.020)
[2019-03-09 01:37] LABS: BILIRUBIN NEGATIVE (NEGATIVE); GLUCOSE NEGATIVE (NEGATIVE); KETONE NEGATIVE (NEGATIVE); NITRITE NEGATIVE (NEGATIVE); PROTEIN NEGATIVE (NEGATIVE); UROBILINOGEN NORMAL (NORMAL)
[2019-03-09 01:42] LABS: BACTERIA FEW /hpf (NEGATIVE); EPITHELIAL CELLS 0-5 /hpf (0-5); RED CELLS - URINE 0-5 /hpf (0-5); WHITE CELLS - URINE 0-5 /hpf (NEGATIVE)
[2019-03-09] MEDS ORDERED: TORADOL10 MG PO (01:43)
[2019-03-09] MEDS ORDERED: MACROBID100 MG PO (01:47)
[2019-03-09 01:54] VITALS: BP 130/85
== END 2019-03-09 01:54 | disposition home or self-care (01) ==
LOC: D.ER 00:43
PROVIDERS: Family Medicine
DX: O86.20 Urinary tract infection following delivery, unspecified (principal); G89.18 Other acute postprocedural pain

== ENCOUNTER 2019-06-18 20:23 | Emergency (ER) | payer MEDICAID ==
[~2019-06-18] VITALS: Ht 152.4 cm; Wt 72.7 kg
[~2019-06-18 20:23] MED LIST changes: +COLACE100 MG PO; +MIRALAX17 GM PO
[2019-06-18 20:26] VITALS: Ht 152.4 cm; Wt 72.7 kg
[2019-06-18 21:02] LABS: BASOPHILS 0.2 % (0-2); EOSINOPHILS 0.9 % (0-7); HEMATOCRIT 37.1 % (36.0-48.0); HEMOGLOBIN 11.7 g/dL (12-16); IMMATURE GRANULOCYTES 0.2 % (0-5); LYMPHOCYTES 20.7 % (15-50); MCHC 31.5 g/dL (31.0-37.0); MCV 82.4 fL (80.0-100.0); MEAN PLATELET VOLUME 9.7 fL (7.4-10.4); MONOCYTES 5.5 % (2-11); NEUTROPHILS 72.5 % (40-80); PLATELET COUNT 283 10x3/uL (130-400); RDW 15.8 % (11.5-14.5); WBC 9.3 10x3/uL (4.8-10.8)
[2019-06-18 21:13] LABS: CALC OSMOLALITY 270 mosm/kg (275-300); CALCIUM 8.7 mg/dL (8.5-10.1); CARBON DIOXIDE 22.7 mmol/L (21.0-32.0); CHLORIDE - SERUM 103 mmol/L (98-107); CREATININE - SERUM 0.5 mg/dL (0.6-1.3); GLUCOSE 87 mg/dL (74-106); POTASSIUM - SERUM 3.3 mmol/L (3.5-5.1); SODIUM 137 mmol/L (136-145); UREA NITROGEN 8 mg/dL (7-18); eGFR NON AFRICAN AMERICAN > 90 mL/min (90-120)
[2019-06-18 21:21] LABS: AMORPHOUS SEDIMENT >1+ /lpf (NONE SEEN); BACTERIA MODERATE /hpf (NEGATIVE); BILIRUBIN NEGATIVE (NEGATIVE); GLUCOSE NEGATIVE (NEGATIVE); KETONE LARGE mg/dL (NEGATIVE); NITRITE NEGATIVE (NEGATIVE); RED CELLS - URINE OCC /hpf (0-5); UROBILINOGEN NORMAL (NORMAL)
[2019-06-18 21:26] LABS: UDS - AMPHET NEGATIVE QUAL (NEGATIVE); UDS - BARB NEGATIVE QUAL (NEGATIVE); UDS - BENZO NEGATIVE QUAL (NEGATIVE); UDS - COCAINE NEGATIVE QUAL (NEGATIVE); UDS - OPIATE POSITIVE QUAL (NEGATIVE); UDS - PCP NEGATIVE QUAL (NEGATIVE); UDS - THC NEGATIVE QUAL (NEGATIVE)
[2019-06-18 21:46] LABS: ALBUMIN 3.7 g/dL (3.4-5.0); ALKALINE PHOSPHATASE 54 U/L (30-120); ALT (SGPT) 39 U/L (10-68); BILIRUBIN - TOTAL 0.42 mg/dL (0.2-1.3); HCG - QUANTITATIVE (MATERNAL) 32177 mIU/mL; LIPASE 63 U/L (73-393); PROTEIN - SERUM 7.5 g/dL (6.4-8.2); THYROID STIMULATING HORMONE 0.95 uIU/mL (0.36-3.74)
[2019-06-18 22:34] VITALS: BP 134/81
== END 2019-06-18 22:35 | disposition home or self-care (01) ==
LOC: D.ER 20:23
PROVIDERS: Family Medicine
DX: O26.891 Other specified pregnancy related conditions, first trimester (principal); Z3A.01 Less than 8 weeks gestation of pregnancy; R10.9 Unspecified abdominal pain

== ENCOUNTER 2019-06-19 23:52 | Emergency (ER) | payer MEDICAID ==
[~2019-06-19] VITALS: Ht 152.4 cm; Wt 72.7 kg
[2019-06-20 00:01] VITALS: Ht 152.4 cm; Wt 72.7 kg
[2019-06-20 00:27] LABS: BASOPHILS 0.2 % (0-2); EOSINOPHILS 1.5 % (0-7); HEMATOCRIT 37.3 % (36.0-48.0); HEMOGLOBIN 11.9 g/dL (12-16); IMMATURE GRANULOCYTES 0.2 % (0-5); LYMPHOCYTES 21.8 % (15-50); MCH 25.9 pg (26.0-34.0); MCHC 31.9 g/dL (31.0-37.0); MCV 81.3 fL (80.0-100.0); MEAN PLATELET VOLUME 9.4 fL (7.4-10.4); MONOCYTES 6.3 % (2-11); PLATELET COUNT 294 10x3/uL (130-400); RBC 4.59 10x6/uL (4.00-5.40); RDW 15.7 % (11.5-14.5); WBC 11.5 10x3/uL (4.8-10.8)
[2019-06-20 00:34] LABS: CALC OSMOLALITY 271 mosm/kg (275-300); CARBON DIOXIDE 23.9 mmol/L (21.0-32.0); CHLORIDE - SERUM 102 mmol/L (98-107); CREATININE - SERUM 0.5 mg/dL (0.6-1.3); GLUCOSE 109 mg/dL (74-106); POTASSIUM - SERUM 3.4 mmol/L (3.5-5.1); SODIUM 136 mmol/L (136-145); UREA NITROGEN 9 mg/dL (7-18); eGFR NON AFRICAN AMERICAN > 90 mL/min (90-120)
[2019-06-20 00:37] LABS: BILIRUBIN NEGATIVE (NEGATIVE); GLUCOSE NEGATIVE (NEGATIVE); KETONE NEGATIVE (NEGATIVE); NITRITE NEGATIVE (NEGATIVE); UROBILINOGEN NORMAL (NORMAL)
[2019-06-20 00:40] LABS: ALBUMIN 3.7 g/dL (3.4-5.0); ALKALINE PHOSPHATASE 52 U/L (30-120); ALT (SGPT) 33 U/L (10-68); BILIRUBIN - TOTAL 0.22 mg/dL (0.2-1.3); PROTEIN - SERUM 7.5 g/dL (6.4-8.2)
[2019-06-20 00:40] LABS: BACTERIA MODERATE /hpf (NEGATIVE); EPITHELIAL CELLS 0-5 /hpf (0-5); RED CELLS - URINE 0-5 /hpf (0-5); WHITE CELLS - URINE 0-5 /hpf (NEGATIVE)
[2019-06-20 01:46] LABS: HCG SERUM POSITIVE (NEGATIVE)
[2019-06-20 03:04] VITALS: BP 113/70
== END 2019-06-20 03:04 | disposition home or self-care (01) ==
LOC: D.ER 23:52
PROVIDERS: Family Medicine
DX: O20.0 Threatened abortion (principal); Z3A.01 Less than 8 weeks gestation of pregnancy; N93.9 Abnormal uterine and vaginal bleeding, unspecified

== ENCOUNTER → 2020-04-30 14:29 | Outpatient (CLI) | payer MEDICAID ==
[2020-01-14 16:44] VITALS: BMI 29.3
[~2020-04-30 14:29] MED LIST changes: +BENTYL 20 MG TA20 MG PO; +IRON SUPPLEMENT
== END | disposition home or self-care (01) ==
LOC: D.CT 14:29
PROVIDERS: ATTEND Nurse Practitioner
DX: R10.9 Unspecified abdominal pain (principal)

== ENCOUNTER 2020-05-04 14:58 | Emergency (ER) | payer MEDICAID ==
[~2020-05-04] VITALS: Ht 152.4 cm; Wt 77.3 kg
[2020-05-04 15:03] VITALS: BP 128/81; Ht 152.4 cm; Wt 77.3 kg
[2020-05-04 15:20] LABS: BASOPHILS 0.2 % (0-2); EOSINOPHILS 1.4 % (0-7); HEMATOCRIT 42.6 % (36.0-48.0); HEMOGLOBIN 13.8 g/dL (12-16); IMMATURE GRANULOCYTES 0.3 % (0-5); LYMPHOCYTE ABS# 3.14 10x3/uL (1.18-3.74); LYMPHOCYTES 28.3 % (15-50); MCH 26.8 pg (26.0-34.0); MCHC 32.4 g/dL (31.0-37.0); MCV 82.9 fL (80.0-100.0); MEAN PLATELET VOLUME 10.3 fL (7.4-10.4); MONOCYTES 5.1 % (2-11); NEUTROPHIL ABS# 7.19 10x3/uL (1.56-6.13); NEUTROPHILS 64.7 % (40-80); PLATELET COUNT 255 10x3/uL (130-400); RBC 5.14 10x6/uL (4.00-5.40); WBC 11.1 10x3/uL (4.8-10.8)
[2020-05-04 15:36] LABS: CALC OSMOLALITY 276 mosm/kg (275-300); CALCIUM 8.8 mg/dL (8.5-10.1); CARBON DIOXIDE 24.7 mmol/L (21.0-32.0); CHLORIDE - SERUM 103 mmol/L (98-107); CREATININE - SERUM 0.8 mg/dL (0.6-1.3); GLUCOSE 127 mg/dL (74-106); HCG URINE NEGATIVE (NEGATIVE); POTASSIUM - SERUM 3.3 mmol/L (3.5-5.1); SODIUM 138 mmol/L (136-145); UREA NITROGEN 11 mg/dL (7-18); eGFR NON AFRICAN AMERICAN > 90 mL/min (90-120)
[2020-05-04 15:38] LABS: BILIRUBIN NEGATIVE (NEGATIVE); KETONE NEGATIVE (NEGATIVE); NITRITE NEGATIVE (NEGATIVE); UROBILINOGEN NORMAL mg/dL (< 2); WHITE CELLS - URINE 0-5 HPF (0-4)
[2020-05-04 15:39] LABS: BACTERIA MODERATE HPF (NONE SEEN)
[2020-05-04 15:44] LABS: ALKALINE PHOSPHATASE 62 U/L (30-120); ALT (SGPT) 30 U/L (10-68); AMYLASE - SERUM 57 U/L (25-115); BILIRUBIN - TOTAL 0.32 mg/dL (0.2-1.3); LIPASE 115 U/L (73-393); PROTEIN - SERUM 7.9 g/dL (6.4-8.2); TROPONIN-I < 0.017 ng/mL (0.000-0.060)
[2020-05-04] MEDS ORDERED: DICLOFENAC SODI50 MG PO (16:41)
[2020-05-04] MEDS ORDERED: REGLAN5 MG PO (16:41)
[2020-05-04] MEDS ORDERED: BENTYL 20 MG TA20 MG PO (16:42)
== END 2020-05-04 17:04 | disposition home or self-care (01) ==
LOC: D.ER 14:58
PROVIDERS: Family Medicine
DX: R10.11 Right upper quadrant pain (principal); E87.6 Hypokalemia; K43.9 Ventral hernia without obstruction or gangrene

== ENCOUNTER → 2020-05-09 12:12 | Outpatient (CLI) | payer MEDICAID ==
[2020-05-04 15:03] VITALS: BMI 33.2
[~2020-05-09 12:12] MED LIST changes: +DICLOFENAC SODI50 MG PO; +REGLAN5 MG PO
== END | disposition home or self-care (01) ==
LOC: D.NM 12:12
PROVIDERS: ATTEND Nurse Practitioner
DX: R11.2 Nausea with vomiting, unspecified (principal)

== ENCOUNTER 2020-05-16 10:21 | Day surgery (SDC) | payer MEDICAID ==
[~2020-05-16] VITALS: Ht 152.4 cm; Wt 77.3 kg
[2020-05-16 10:54] LABS: MCH 26.7 pg (26.0-34.0); MCHC 31.7 g/dL (31.0-37.0); MCV 84.4 fL (80.0-100.0); MEAN PLATELET VOLUME 10.8 fL (7.4-10.4); PLATELET COUNT 248 10x3/uL (130-400); RBC 4.86 10x6/uL (4.00-5.40); RDW 16.1 % (11.5-14.5); WBC 7.1 10x3/uL (4.8-10.8)
[2020-05-16 11:15] LABS: HCG SERUM NEGATIVE (NEGATIVE)
[2020-05-16 13:56] VITALS: BP 119/65; Ht 152.4 cm; Wt 77.3 kg
[2020-05-16 14:05] LABS: ALBUMIN 3.7 g/dL (3.4-5.0); ALKALINE PHOSPHATASE 61 U/L (30-120); ALT (SGPT) 24 U/L (10-68); BILIRUBIN - TOTAL 0.37 mg/dL (0.2-1.3); CALC OSMOLALITY 272 mosm/kg (275-300); CALCIUM 8.4 mg/dL (8.5-10.1); CHLORIDE - SERUM 105 mmol/L (98-107); CREATININE - SERUM 0.5 mg/dL (0.6-1.3); GLUCOSE 96 mg/dL (74-106); POTASSIUM - SERUM 3.7 mmol/L (3.5-5.1); SODIUM 137 mmol/L (136-145); UREA NITROGEN 10 mg/dL (7-18); eGFR NON AFRICAN AMERICAN > 90 mL/min (90-120)
--- NOTE | 2020-05-16 18:51 | NUR ---
PATIENT UPON ARRIVAL WAS CRYING STATING IT WAS HURTING. FOLLOWED PAIN ORDERS. ALERTED ANESTHESIA THAT I HAD GIVEN 2 MG OF DILAUDED AND 25 OF DEMEROL AND PATIENT WAS STILL CRYING STATING SHE WAS HURTING REALLY BAD. SHE SAID IT HURTS TO BREATHE. PATIENT ON 2 L NC AT 98%. SHE SAID SHE IS HUNGRY AND WOULD LIKE A PIECE OF PIZZA. PATIENT AWAKE. SITTING UPRIGHT CHEWING ON ICE. SPOLKE WITH AND GAVE UPDATE.
--- NOTE | 2020-05-16 20:10 | NUR ---
PT STATES PAIN IS TOLERABLE AND AMBULATES WITHOUT DIFFICULTY. IV D/C'D WITH CANNULA INTACT, PRESSURE HELD AND DRSG PLACED. DISCHARGE INSTRUCTION GIVEN.
--- NOTE | 2020-05-17 15:14 | OP ---
PATIENT NAME: ALLAN REYES MEDICAL RECORD: [id number] :95 LOCATION:D.OPS ADMISSION DATE: SURGEON: BILL KUMAR MD DATE OF OPERATION: 05/16/2020 PREOPERATIVE DIAGNOSES: 1. Biliary dyskinesia. 2. Ventral symptomatic incisional hernias. POSTOPERATIVE DIAGNOSES: 1. Biliary dyskinesia. 2. Pale 1 cm liver lesion over the convexity of the liver. 3. Incarcerated ventral incisional hernias. PROCEDURES: 1. Laparoscopic cholecystectomy. 2. Intraoperative cholangiography without immediate surgeon interpretation. 3. A 14-gauge core needle liver biopsies. 4. Open incarcerated ventral incisional hernia repair without mesh. SURGEON: Bill Kumar MD. DEPENDENCY COUNSELOR: None. BLOOD LOSS: Minimal. ANESTHESIA: General. COMPLICATIONS: None. INDICATIONS: I saw the patient in the holding area in the presence of a nurse I examined her. I reviewed her CT images. I told her that because I would be cutting the cystic duct and there was a possibility of leakage of bile, which might be contaminated, I felt that a herniorrhaphy with mesh was contraindicated. However, I told her that we could do a suture repair of the incisional hernias, of which there appeared to be 2 or 3. I told her that there will be an increased risk of recurrence. She was amenable to the suture repair, however. The risks, possible complications, and alternatives of the procedure were explained to the patient. She elects to proceed. The discussion specifically included, but was not limited to, bleeding requiring emergency reoperation, infection, intestinal injury, common bile duct injury as well as hernia recurrence. OPERATIVE COURSE: The patient was conveyed to the operating room electively on 05/16/2020. General anesthesia was induced by the anesthesia staff. The abdomen was sterilely prepped and draped. A small skin incision was accomplished in the left upper quadrant. A Veress needle was inserted through a skin luca into the peritoneal cavity. CO2 insufflation was begun. Once a sufficient pneumoperitoneum had been achieved, a 5-mm trocar was inserted through this incision in the left upper quadrant. Another 5 mm trocar was inserted through the skin incision to the right of the epigastrium. Another 5-mm trocar was inserted through skin incision far laterally in the right upper quadrant. A 12-mm trocar was inserted through the skin incision at the umbilicus. There were adhesions in the midline from the umbilicus to the falciform ligament. These were taken down with electrocautery. There was no OPERATIVE REPORT [id number] ALLAN REYES damage to the bowels during this procedure. There was a pale firm lesion over the convexity of the liver. This could represent a neoplasm. For this reason, I percutaneously accessed right upper quadrant under laparoscopic guidance. 14-gauge core biopsies of this lesion were obtained. Biopsy sites were made hemostatic with electrocautery. The gallbladder was grasped and retracted anteriorly. I then advanced a cholangiogram trocar. I punctured the fundus of the gallbladder. I aspirated bile. I injected dye. Under real time fluoroscopy, static fluoroscopic images were obtained and these were sent to the radiologist for interpretation. These are cholangiographic images. I withdrew bile and then withdrew the cholangiogram trocar. The gallbladder was grasped and retracted cephalad. The infundibulum was grasped and retracted laterally. Blunt dissection was begun in the triangle of Calot. One cystic artery and one cystic duct were identified. These were clipped multiply and divided between clips. The gallbladder was then excised from its bed in the liver. It was placed within a bag retrieval device and was withdrawn through the umbilical fascial defect. I then irrigated the right upper quadrant. There was no bleeding even at low pressure of 8. All the trocars were removed and abdomen desufflated. The trocar sites were closed with interrupted 4-0 Vicryl intracuticular sutures. The skin at the umbilicus was closed with interrupted 4-0 Vicryl Rapide sutures. Attention was then turned to the herniorrhaphy. I cut out the patient's scar as this was going to pose a problem with closure at the end of the procedure. I then dissected down with electrocautery until the hernia sac. Through this hernia sac, I then opened the incision widely. I excised hernia sac as well as attenuated fascia. The falciform ligament was identified and was ligated with a 0 Vicryl suture. I then excised some of the preperitoneal fat from underneath the fascia. I then created flaps on top of the rectus sheath. More attenuated fascia was excised. The hernia defects were closed with multiple horizontal mattress #1 Surgidacs over around the closure with a running #1 Vicryl. The deep adipose tissue was closed with interrupted 3-0 Vicryl sutures. Subcutaneous adipose tissue was closed with interrupted 3-0 Vicryl. The skin was approximated with a running intracuticular 3-0 Vicryl. A Prineo was then applied. The incarcerated contents in the incisional hernias consisted of omentum and adipose tissue only. No bowel was present within the hernia defects. The patient was then extubated and conveyed to the post-anesthesia care unit where she was in stable condition. She is not to do any lifting or straining for 3 weeks. She is going to be dismissed home on hydrocodone as well as Colace. I will see her in the office in 2-3 weeks. TRANSINT:[id number] Voice Confirmation ID: [id number] DOCUMENT ID: [id number] OPERATIVE REPORT [id number] ALLAN REYES, BILL RUIZ at 1514 CC: [id number] DICTATION DATE: 05/16/201906 [employer] AGENT: 05/16/[address] [facility] 05/16/20 [facility] [address] [place] [address]
== END 2020-05-16 20:00 | disposition home or self-care (01) ==
LOC: D.OPS 10:21
PROVIDERS: Anesthesiology; ATTEND Surgery
DX: K82.8 Other specified diseases of gallbladder (principal); K43.9 Ventral hernia without obstruction or gangrene; K76.9 Liver disease, unspecified; R11.2 Nausea with vomiting, unspecified; D50.9 Iron deficiency anemia, unspecified

== ENCOUNTER → 2020-06-14 17:25 | Outpatient (CLI) | payer MEDICAID ==
[2020-05-16 13:56] VITALS: BMI 33.2
== END | disposition home or self-care (01) ==
LOC: D.LABREF 17:25
PROVIDERS: ATTEND Nurse Practitioner
DX: T81.30XA Disruption of wound, unspecified, initial encounter (principal)